=== PATIENT | female | born 1945 | race Caucasian/White ===

== ENCOUNTER → 2016-10-17 | Outpatient (CLI) | payer OTHER, MEDICARE | LOC: BHFA 11:00 | PROVIDERS: ATTEND Internal Medicine Interventional Cardiology | DX: I25.10 Atherosclerotic heart disease of native coronary artery without angina pectoris (principal); E78.5 Hyperlipidemia, unspecified; I10 Essential (primary) hypertension ==

== ENCOUNTER → 2017-02-08 | Outpatient (CLI) | payer OTHER, MEDICARE | LOC: FCPNEURO 21:00 | PROVIDERS: ATTEND Internal Medicine Sleep Medicine | DX: G47.33 Obstructive sleep apnea (adult) (pediatric) (principal); G47.61 Periodic limb movement disorder ==

== ENCOUNTER 2017-04-20 06:50 | Day surgery (SDC) | payer OTHER, MEDICARE ==
[2017-04-20] MEDS ORDERED: FAMOTIDINE 20 MG TAB PO ONE (06:51)
[2017-04-20] MEDS ORDERED: ASPIRIN EC 325 MG TAB PO ONE ×2 (06:51→07:25)
[2017-04-20] MEDS ORDERED: DIAZEPAM 5 MG TAB PO ONE (06:51)
[2017-04-20] MEDS ORDERED: NS 1,000 ML IV ONE (06:51)
[2017-04-20] MEDS ORDERED: diphenhydrAMINE 25 MG CAP PO ONE ×2 (06:51→07:24)
--- NOTE | 2017-04-20 07:20 | CPEKG ---
Heart Rate: 82 RR Interval: 732 P-R Interval: 152 QRSD Interval: 94 QT Interval: 376 QTC Interval: 439 P [place]: 46 QRS [place]: 6 T Wave [place]: 37 EKG Severity - NORMAL ECG - EKG Impression: SINUS RHYTHM Electronically Signed By: Brandt Palacios 20-Apr-2017 14:07:25
[2017-04-20] MEDS ORDERED: DIAZEPAM 5 MG TAB ONE (07:25)
[2017-04-20] MEDS ORDERED: FAMOTIDINE 20 MG TAB ONE (07:25)
[2017-04-20] MEDS ORDERED: CLOPIDOGREL BISULFATE 75 MG TAB PO ONE (07:30)
[2017-04-20 07:37] LABS: % IMMATURE GRANULYOCYTES 0.5 % (0.0-1.1); ABSOLUTE IMMATURE GRANULOCYTES 0.03 10^3/uL (0.00-0.10); ADD DIFF? NO; ADD MORPH? NO; ADD SCAN? NO; ATYPICAL LYMPHOCYTE FLAG 0 (0-99); FRAGMENT RBC FLAG 0 (0-99); HEMATOCRIT 41.3 % (38.0-47.0); LEFT SHIFT FLG 0 (0-99); LIPEMIA HEMOLYSIS FLAG 90 (0-99); MEAN CELL HEMOGLOBIN 29.8 pg (27.9-34.1); MEAN CELL HEMOGLOBIN CONCENTR. 33.9 g/dL (32.4-36.7); MEAN CELL VOLUME 87.9 fL (81.5-99.8); MEAN PLATELET VOLUME 11.2 fL (8.7-11.7); PLATELET CLUMPS FLAG 10 (0-99); PLATELET COUNT 214 10^3/uL (150-400); RED CELL DISTRIBUTION WIDTH 14.6 % (11.5-15.2)
[2017-04-20 07:49] LABS: INR 0.93 (0.83-1.16); PROTIME(PATIENT) 12.4 SEC (12.0-15.0)
[2017-04-20 08:01] LABS: ANION GAP 12 mEq/L (8-16); CALCIUM 9.2 mg/dL (8.5-10.4); CARBON DIOXIDE 24 mEq/l (22-31); CHLORIDE 105 mEq/L (97-110); CHOLESTEROL 160 mg/dL (140-220); CHOLESTEROL/HDL RATIO 2.91 RATIO (1.00-4.44); CREATININE 0.6 mg/dL (0.6-1.0); GLOMERULAR FILTRATION RATE > 60; GLUCOSE 97 mg/dL (70-100); HIGH DENSITY LIPOPROTEIN 55 mg/dL (40-85); LDL/HDL RATIO 1.55 RATIO (1.00-3.22); LOW DENSITY LIPOPROTEIN 85 mg/dL (80-100); MAGNESIUM 1.7 mg/dL (1.6-2.3); NON-HIGH DENSITY LIPOPROTEIN 105 mg/dL (90-129); POTASSIUM 4.4 mEq/L (3.5-5.2); SODIUM 141 mEq/L (134-144); TRIGLYCERIDE 104 mg/dL (35-135); VERY LOW DENSITY LIPOPROTEINS 20 mg/dL (8-25)
[2017-04-20] MEDS ORDERED: fentaNYL 100 MCG/2 ML INJ IVP ONE (08:30)
[2017-04-20] MEDS ORDERED: LISINOPRIL 20 MG TAB PO ONE (08:30)
[2017-04-20] MEDS ORDERED: fentaNYL 100 MCG/2 ML INJ ONE (09:04)
[2017-04-20] MEDS ORDERED: MIDAZOLAM 2 MG/2 ML VIAL ONE (09:04)
[2017-04-20] MEDS ORDERED: LIDOCAINE 1% 300 MG/30 ML SDV ONE (09:04)
[2017-04-20] MEDS ORDERED: VERAPAMIL 5 MG/2 ML VIAL ONE (09:05)
[2017-04-20] MEDS ORDERED: HEPARIN 10,000 UNIT/10 ML MDV ONE (09:05)
[2017-04-20] MEDS ORDERED: IOPAMIDOL (ISOVUE-370) 150 ML BTL IV ONE (09:05)
--- NOTE | 2017-04-20 09:16 | PDHPUP ---
History & Physical Update H&P update statement: This history and physical update is based on an assessment of the patient which was completed after admission or registration (within 24 hours), but prior to the surgery/procedure. H&P update: H&P reviewed & patient examined, no change in patient's condition since H&P completed
--- NOTE | 2017-04-20 09:17 | PDPROPOC ---
Sedation Plan of Care Sedation Plan of Care: vital signs stable, mental status noted, patient educated of risks, benefits, alternatives, patient can tolerate sedation ASA Classification: ASA 2 Planned drugs: fentanyl, midazolam Mallampati Score: Class 2 Mallampati Reference Image: Patient passed 3-3-2 rule?: Yes
[2017-04-20] MEDS ORDERED: NITROGLYCERIN 1,500 MCG/15 ML VIAL MISC ONE (10:02)
[2017-04-20] MEDS ORDERED: ONDANSETRON 4 MG/2 ML VIAL IVP PRN (10:50)
[2017-04-20] MEDS ORDERED: NITROGLYCERIN 0.4 MG BTL SL PRN (10:50)
[2017-04-20] MEDS ORDERED: ATROPINE SULFATE 1 MG/10 ML SYR IVP PRN (10:50)
--- NOTE | 2017-04-20 10:57 | PDDXCAT ---
Diagnostic Cath Note - . Date: 04/20/17 Procurement Technician: Joshua Indication: other (Chest pain and CAD with history of prior PCIs.) - Procedure Access: right wrist Procedure: left heart catheterization, coronary angiography, left ventriculogram - Materials Left Heart Cath size: 5F Left Heart Cath materials: other (Sightseer, JR-4, JL-3.5, Mario's right, Multipurpose A-1, and Pigtail) - Findings-Left Heart Catheterization LM: Normal. LAD: Diffuse mild to moderate disease proximal to mid-LAD. Prior stent widely patent. LCX: Mild irregularities proximal and mid-circumflex. RCA: Diffuse mild to moderate irregularities less than 50%. EDP: 22 mmHg LVEF: 65% Wall motion: Mild mid-anterior hypokinesis. Estimated blood loss: <50ml Closure method: TR Band Assessment: 1) Preserved left ventricular systolic function. 2) CAD as described above. Plan: Add long acting nitrate for possible microvascular angina.
[2017-04-21] MEDS ORDERED: ISOSORBIDE MONONITRATE 30 MG TAB.SR PO SCH (09:00)
== END 2017-04-20 15:03 | disposition home or self-care (01) ==
LOC: FCATH 06:50
PROVIDERS: ATTEND Internal Medicine Interventional Cardiology
DX: I25.119 Atherosclerotic heart disease of native coronary artery with unspecified angina pectoris (principal); E78.5 Hyperlipidemia, unspecified; I10 Essential (primary) hypertension; E11.9 Type 2 diabetes mellitus without complications; I34.0 Nonrheumatic mitral (valve) insufficiency; Z95.5 Presence of coronary angioplasty implant and graft; M51.86 Other intervertebral disc disorders, lumbar region; E03.9 Hypothyroidism, unspecified; K21.9 Gastro-esophageal reflux disease without esophagitis
CPT/HCPCS: 93005; 93458; C1769; J1644; J2250; J3010; Q9967

== ENCOUNTER 2017-08-07 13:35 | Day surgery (SDC) | payer OTHER, MEDICARE ==
[2017-08-07] MEDS ORDERED: LR 1,000 ML IV ONE (13:42)
[2017-08-07 14:05] VITALS: PULSE 90
--- NOTE | 2017-08-07 14:11 | PDANEPAE ---
ANE History of Present Illness Patient presents for EGD ANE Past Medical History - Cardiovascular History Hx Coronary Artery / Peripheral Vascular Disease: Yes - Pulmonary History Hx Oxygen in Use at Home: Yes Hx Sleep Apnea: Yes - Endocrine History Hx Diabetes: Yes ANE Review of Systems Review of Systems: ANE Patient History - Allergies Allergies/Adverse Reactions: povidone-iodine [From Betadine] Allergy (Severe, Verified 07/26/15 18:48) Hives soap [From Betadine] Allergy (Severe, Verified 07/26/15 18:48) Hives Sulfa (Sulfonamide Antibiotics) Allergy (Severe, Verified 07/26/15 18:48) Hives acetaminophen [From Percocet] Allergy (Intermediate, Verified 07/26/15 18:48) Vomiting oxycodone HCl [From Percocet] Allergy (Intermediate, Verified 07/26/15 18:48) Vomiting - Home Medications Home medications: home medication list seen and reviewed Home Medications: Clopidogrel Bisulfate [Plavix (*)] 75 mg PO DAILY@07/20/15 [Last Taken ] Levothyroxine [Synthroid 100 mcg (*)] 100 mcg PO DAILY@07/20/15 [Last Taken 08/07/17] Pantoprazole Sodium [Protonix 40mg (*)] 40 mg PO DAILY@07/20/15 [Last Taken 08/07/17] Pramipexole Di-HCl [Mirapex 0.25 mg (*)] 0.5 mg PO DAILY 07/20/15 [Last Taken ] metFORMIN HCL [Glucophage 1000 mg] 1,000 mg PO BIDMEAL 07/20/15 [Last Taken 11/17] Lisinopril [Zestril 20 mg (*)] 20 mg PO DAILY@07/26/15 [Last Taken 08/07/17] Herbals/Supplements -Info Only 1 ea PO DAILY 04/20/17 [Last Taken 08/07/17] Lovastatin 10 mg PO DAILY@04/20/17 [Last Taken 08/07/17] Pramipexole Di-HCl [Mirapex 1 mg (*)] 1 mg PO DAILY18 04/20/17 [Last Taken 08/07] - NPO status NPO Status: no food or drink >8 hours NPO Since - Liquids (Date): 08/07/17 NPO Since - Liquids (Time): 01:14 NPO Since - Solids (Date): 08/06/17 NPO Since - Solids (Time): 22:00 - Anes Hx Anes Hx: no prior problems - Smoking Hx Smoking Status: Never smoked ANE Labs/Vital Signs - Vital Signs Blood Pressure: 185/83 Heart Rate: 90 Respiratory Rate: 16 O2 Sat (%): 94 ANE Physical Exam - Airway Neck exam: FROM Mallampati Score: Class 2 Mouth exam: normal dental/mouth exam - Pulmonary Pulmonary: no respiratory distress - Cardiovascular Cardiovascular: regular rate and rhythym - ASA Status ASA Status: III ANE Anesthesia Plan Anesthesia Plan: GA with mask
[2017-08-07] MEDS ORDERED: PROPOFOL/EMULSION 500 MG/50 ML BOTTLE IV ONE ×2 (14:14→14:36)
--- NOTE | 2017-08-07 14:16 | PDGENHP ---
History & Physical Chief Complaint: panc mass History of Present Illness: 71 year old female with complaints of nasuea, abdominal pain had a CT scan with possible mass in pancreatic neck. Pertinent Past, Social, Family History: PMHx: lesley, CVA, CAD Relevant Physical Exam: HEENT: anicteric. CV: RRR +s1s2. Lungs: CTAB. Abd: soft, nt, + bs Cardiorespiratory Assessment: ASA 3
[2017-08-07] MEDS ORDERED: LIDOCAINE 2% 5 ML SDV ONE (14:17)
[2017-08-07] MEDS ORDERED: NS 500 ML IV SCH (14:30)
[2017-08-07] MEDS ORDERED: HYDROCODONE/APAP 5/325 TAB PO PRN (15:40)
[2017-08-07] MEDS ORDERED: LR 500 ML IV PRN (15:40)
[2017-08-07] MEDS ORDERED: NALOXONE HCL 0.4 MG/ML INJ IVP PRN (15:40)
[2017-08-07] MEDS ORDERED: fentaNYL 100 MCG/2 ML INJ IVP PRN (15:40)
[2017-08-07] MEDS ORDERED: ONDANSETRON 4 MG/2 ML VIAL IVP PRN (15:40)
--- NOTE | 2017-08-07 15:40 | POSTANESTH ---
Post Anesthetic Evaluation Cardiovascular Status: Similar to Pre-Op Cond Respiratory Status: Similar to Pre-op Cond. Level of Consciousness/Mental Status: Can Participate in Eval Pain Control: Adequate, Prn Tx Ordered Nausea/Vomiting Control: Adequate, Prn Tx Ordered Complications Possibly Related to Anesthesia: None Noted
--- NOTE | 2017-08-07 15:56 | GIREPORT ---
[facility] Surgical Services - Endoscopy Department Patient Name: Sarah Beth Oneill Procedure Date: 08/07/2017 1:38 PM Patient Type: Inpatient Attending MD/ ER Physician: Omer Dougherty MD Procedure: Upper EUS Indications: Suspected mass in pancreas on CT scan, Epigastric abdominal pain Patient Profile: 71 year old female who initially had abdominal pain had a CT scan which revealed a possible mass in the pancreas. She presents for further evaluation. Providers: Omer Dougherty MD Medicines: Monitored Anesthesia Care Complications: No immediate complications. Estimated blood loss: Minimal. Description of Procedure: After obtaining informed consent, the endoscope was passed under direct vision. Throughout the procedure, the patient's blood pressure, pulse, and oxygen saturations were monitored continuously. The Endosonoscope was introduced through the mouth, and advanced to the second part of duoden um. The Endoscope was introduced through the mouth, and advanced to the sec ond part of duodenum. The upper EUS was accomplished without difficulty. Th e patient tolerated the procedure well. Findings: Endoscopic Finding : The examined esophagus was normal. A medium-sized hiatal hernia was present. A single 6 mm submucosal papule (nodule) was found in the gastric antru m. Biopsies were taken with a cold forceps for histology. Patchy mildly erythematous mucosa was found in the gastric body and in the gastric antrum. Biopsies were taken with a cold forceps for histology. The examined duodenum was normal. Endosonographic Finding : An irregular mass was identified in the pancreatic neck. The mass was hypoechoic. The mass measured 15 mm by 12 mm in maximal cross-sectional diameter. The endosonographic borders were poorly-defined. The remainde r of the pancreas was examined. The endosonographic appearance of parenchyma and the upstream pancreatic duct indicated duct dilation. Fine needle aspir ation for cytology was performed. Color Doppler imaging was utilized prior to needle puncture to confirm a lack of significant vascular structures wi thin the needle path. Three passes were made with the 25 gauge needle using a transduodenal approach. A stylet was used. A java xml developer was present and performed a preliminary cytologic examination. Another transduodenal pa ss was made witha 22 gauge FNB needle. The mass was close to the portal ve in. No obvious invasion into any vessels. There was no sign of significant endosonographic abnormality in the com mon bile duct. There was no sign of significant endosonographic abnormality in the visualized portion of the liver. No lymphadenopathy seen. Estimated Blood Loss: Estimated blood loss was minimal. Post Op Diagnosis: - Normal esophagus. - Medium-sized hiatal hernia. - A single submucosal papule (nodule) found in the stomach. Biopsied. - Erythematous mucosa in the gastric body and antrum. Biopsied. - Normal examined duodenum. - A mass was identified in the pancreatic neck. Fine needle aspiration performed. - There was no sign of significant pathology in the common bile duct. - There was no evidence of significant pathology in the visualized port ion of the liver. Recommendation: - Discharge patient to home (with escort). - Continue present medications. - Clear liquid diet. - Await cytology results and await path results. - Follow up with oncology/surgery - Thank you for allowing me to participate in the care of your patient. Attending Participation: I personally performed the entire procedure. Omer Dougherty MD Omer Dougherty MD 08/07/2017 3:55:38 PM This report has been signed electronicallyOmer Dougherty MD Number of Addenda: 0 Note Initiated On: 08/07/2017 1:38 PM [email or web address]}
[2017-08-07 16:26] VITALS: RESP 21
[2017-08-07 17:39] VITALS: TEMP 97.3
[2017-08-07 18:04] VITALS: BP 183/103; O2SAT 95
== END 2017-08-07 17:20 | disposition home or self-care (01) ==
LOC: FSGY 13:35
PROVIDERS: ATTEND Internal Medicine Gastroenterology
DX: R10.13 Epigastric pain (principal); C25.7 Malignant neoplasm of other parts of pancreas
CPT/HCPCS: J2704

== ENCOUNTER 2017-12-13 18:50 | Inpatient (IN) | payer OTHER, MEDICARE ==
--- NOTE | 2017-12-13 19:27 | EDPHY ---
H & P Time Seen by Provider: 12/13/17 19:05 HPI/ROS: CHIEF COMPLAINT: Nausea vomiting and weakness HISTORY OF PRESENT ILLNESS: Patient had a Whipple procedure in August of this year for pancreatic cancer down at [facility] in [place]. She was scheduled for chemotherapy but it made her feel so bad that that was stopped. She has had nausea and vomiting for the past 5 months worse over the past week and is brought here by her daughter's best friend when she went to check on her and the patient could barely stand at home. Patient says symptoms are severe. Not associated with abdominal pain but they are worse when she tries to eat or drink. A little bit helped by Reglan and Zofran. Associated with 35 lb weight loss in 5 months. She has a little shortness of breath specially with exertion. REVIEW OF SYSTEMS: Eye: no change in vision ENT: no sore throat Cardiac: no chest pain or syncope Pulmonary: No coughing Abdomen: No diarrhea or melena or hematemesis. Musculoskeletal: no back pain Skin: no rash Neuro: no headache Constitutional: no fever : Darker and funny smelling urine A comprehensive 10 point review of systems is otherwise negative aside from elements mentioned in the history of present illness. PAST MEDICAL HISTORY: Includes Whipple as above, hypertension, cardiac stenting , hypothyroid, hysterectomy. Cholecystectomy, diabetes. Social history: Here with her daughter's best friend General Appearance: Alert and conversant, cooperative. Eyes: No scleral icterus. ENT, Mouth: Slightly dry mucous membranes. Respiratory: Normal respiratory effort, breath sounds equal, lungs are clear to auscultation. Cardiovascular: Regular rate and rhythm. Gastrointestinal: Abdomen is soft and non tender. Neurological: Alert, face symmetric, normal motor and sensory in extremities. Skin: Warm and dry, no rashes. Musculoskeletal: No peripheral edema. Psychiatric: Not agitated. Emergency Department course/MDM: Plan for EKG and labs to include electrolytes, TSH, IV fluids, admission to hospitalist service due to the severity of symptoms and debilitation. 1956: I-STAT sodium 141, normal saline 1 L IV given, Zofran 4 mg IV. 2040: discussed results with family and patient, admission for UTI with debility and dehydration and nausea, inability to tolerate oral fluids. Urine culture sent and 1 g IV ceftriaxone. Smoking Status: Never smoked Constitutional: Initial Vital Signs Temperature (C) 36.5 C 12/13/17 18:56 Heart Rate 64 12/13/17 18:56 Respiratory Rate 18 12/13/17 18:56 Blood Pressure 122/107 H 12/13/17 18:56 O2 Sat (%) 96 12/13/17 18:56 O2 Delivery Mode Room Air Allergies/Adverse Reactions: povidone-iodine [From Betadine] Allergy (Severe, Verified 07/26/15 18:48) Hives soap [From Betadine] Allergy (Severe, Verified 07/26/15 18:48) Hives Sulfa (Sulfonamide Antibiotics) Allergy (Severe, Verified 07/26/15 18:48) Hives acetaminophen [From Percocet] Allergy (Intermediate, Verified 07/26/15 18:48) Vomiting oxycodone HCl [From Percocet] Allergy (Intermediate, Verified 07/26/15 18:48) Vomiting Home Medications: Medication Instructions Recorded Clopidogrel Bisulfate [Plavix (*)] 75 mg PO DAILY@12 07/20/15 Levothyroxine [Synthroid 100 mcg 100 mcg PO DAILY@07/20/15 (*)] Pantoprazole Sodium [Protonix 40mg 40 mg PO DAILY@12 07/20/15 (*)] Pramipexole Di-HCl [Mirapex 0.25 0.5 mg PO DAILY 07/20/15 mg (*)] Lisinopril [Zestril 20 mg (*)] 20 mg PO DAILY@12 07/26/15 Lovastatin 10 mg PO DAILY@04/20/17 Pramipexole Di-HCl [Mirapex 1 mg 1 mg PO DAILY18 04/20/17 (*)] Insulin NPH Human [HumuLIN N] 5 units SQ HS 12/13/17 Insulin NPH Human [HumuLIN N] 6 units SQ DAILY 12/13/17 Metoclopramide [Reglan 5 mg (*)] 5 mg PO ACHS 12/13/17 Metoprolol Tartrate [Lopressor 25 12.5 mg PO DAILY 12/13/17 mg (*)] Medical Decision Making - Diagnostics EKG Interpretation: 12-lead EKG interpreted by me; official reading is in trace master. My interpretation is sinus rhythm rate 70 with no ischemic changes. Differential Diagnosis: Differential for weakness and nausea considered including but not limited to ACS , UTI, electrolyte abnormality, anemia. Consult/Admit Bed Type: [place] 2048, [place] 2047 - Data Points Laboratory Results: Laboratory Results 12/13/17 19:32 12/13/17 19:32 12/13/17 12/13/17 12/13/17 19:53 19:49 19:44 WBC RBC Hgb POC Hgb 14.3 gm/dL gm/dL (12.6-16.3) Hct POC Hct 42 % % (38-47) MCV MCH MCHC RDW Plt Count MPV Neut % (Auto) Lymph % (Auto) [place] % (Auto) Eos % (Auto) Baso % (Auto) Nucleat RBC Rel Count Absolute Neuts (auto) Absolute Lymphs (auto) Absolute Monos (auto) Absolute Eos (auto) Absolute Basos (auto) Absolute Nucleated RBC Immature Gran % Immature Gran # POC Sodium 141 mEq/L mEq/L (135-145) Sodium POC Potassium 3.4 mEq/L mEq/L (3.3-5.0) Potassium POC Chloride 103 mEq/L mEq/L (97-110) Chloride Carbon Dioxide Anion Gap POC BUN 7 mg/dL mg/dL (7-23) BUN Creatinine POC Creatinine 0.8 mg/dL mg/dL (0.6-1.0) Estimated GFR Glucose POC Glucose 84 mg/dL mg/dL (70-100) Calcium Total Bilirubin Conjugated Bilirubin Unconjugated Bilirubin AST ALT Alkaline Phosphatase POC Troponin I 0.00 ng/mL ng/mL (0.00-0.08) Total Protein Albumin TSH Urine Color YELLOW Urine Appearance CLEAR Urine pH 6.0 (5.0-7.5) Ur Specific [place] 1.015 (1.002-1.030) Urine Protein NEGATIVE (NEGATIVE) Urine Ketones NEGATIVE (NEGATIVE) Urine Blood NEGATIVE (NEGATIVE) Urine Nitrate NEGATIVE (NEGATIVE) Urine Bilirubin NEGATIVE (NEGATIVE) Urine Urobilinogen NEGATIVE EU EU (0.2-1.0) Ur Leukocyte Esterase 3+ H (NEGATIVE) Urine RBC 1-3 /hpf /hpf (0-3) Urine WBC 15-25 /hpf H /hpf (0-3) Ur Epithelial Cells TRACE /lpf /lpf (NONE-1+) Urine Mucus TRACE /lpf /lpf (NONE-1+) Urine Glucose NEGATIVE (NEGATIVE) 12/13/17 12/13/17 19:32 19:32 WBC 7.98 10^3/uL 10^3/uL (3.80-9.50) RBC 4.45 10^6/uL 10^6/uL (4.18-5.33) Hgb 13.2 g/dL g/dL (12.6-16.3) POC Hgb Hct 39.2 % % (38.0-47.0) POC Hct MCV 88.1 fL fL (81.5-99.8) MCH 29.7 pg pg (27.9-34.1) MCHC 33.7 g/dL g/dL (32.4-36.7) RDW 18.9 % H % (11.5-15.2) Plt Count 305 10^3/uL 10^3/uL (150-400) MPV 12.1 fL H fL (8.7-11.7) Neut % (Auto) 72.4 % % (39.3-74.2) Lymph % (Auto) 17.7 % % (15.0-45.0) [place] % (Auto) 7.8 % % (4.5-13.0) Eos % (Auto) 1.3 % % (0.6-7.6) Baso % (Auto) 0.5 % % (0.3-1.7) Nucleat RBC Rel Count 0.0 % % (0.0-0.2) Absolute Neuts (auto) 5.79 10^3/uL 10^3/uL (1.70-6.50) Absolute Lymphs (auto) 1.41 10^3/uL 10^3/uL (1.00-3.00) Absolute Monos (auto) 0.62 10^3/uL 10^3/uL (0.30-0.80) Absolute Eos (auto) 0.10 10^3/uL 10^3/uL (0.03-0.40) Absolute Basos (auto) 0.04 10^3/uL 10^3/uL (0.02-0.10) Absolute Nucleated RBC 0.00 10^3/uL 10^3/uL (0-0.01) Immature Gran % 0.3 % % (0.0-1.1) Immature Gran # 0.02 10^3/uL 10^3/uL (0.00-0.10) POC Sodium Sodium 141 mEq/L mEq/L (135-145) POC Potassium Potassium 3.9 mEq/L mEq/L (3.3-5.0) POC Chloride Chloride 106 mEq/L mEq/L (97-110) Carbon Dioxide 23 mEq/l mEq/l (22-31) Anion Gap 12 mEq/L mEq/L (8-16) POC BUN BUN 9 mg/dL mg/dL (7-23) Creatinine 0.7 mg/dL mg/dL (0.6-1.0) POC Creatinine Estimated GFR > 60 Glucose 74 mg/dL mg/dL (70-100) POC Glucose Calcium 8.8 mg/dL mg/dL (8.5-10.4) Total Bilirubin 0.8 mg/dL mg/dL (0.1-1.4) Conjugated Bilirubin 0.5 mg/dL mg/dL (0.0-0.5) Unconjugated Bilirubin 0.3 mg/dL mg/dL (0.0-1.1) AST 62 IU/L H IU/L (14-46) ALT 55 IU/L H IU/L (9-52) Alkaline Phosphatase 118 IU/L IU/L (38-126) POC Troponin I Total Protein 6.4 g/dL g/dL (6.3-8.2) Albumin 3.3 g/dL L g/dL (3.5-5.0) TSH 6.200 uIU/mL H uIU/mL (0.465-4.680) Urine Color Urine Appearance Urine pH Ur Specific [place] Urine Protein Urine Ketones Urine Blood Urine Nitrate Urine Bilirubin Urine Urobilinogen Ur Leukocyte Esterase Urine RBC Urine WBC Ur Epithelial Cells Urine Mucus Urine Glucose Medications Given: Discontinued Medications Sodium Chloride (Ns) 1,000 mls @ 0 mls/hr IV EDNOW ONE; Wide Open PRN Reason: Protocol Stop: 12/13/17 19:57 Last Admin: 12/13/17 20:17 Dose: 1,000 mls Ceftriaxone Sodium/Dextrose (Rocephin 1 Gm (Premix)) 50 mls @ 100 mls/hr IV EDNOW ONE PRN Reason: Protocol Stop: 12/13/17 21:17 Last Admin: 12/13/17 21:06 Dose: 50 mls Ondansetron HCl (Zofran) 4 mg IVP EDNOW ONE Stop: 12/13/17 19:57 Last Admin: 12/13/17 20:17 Dose: 4 mg Point of Care Test Results: Chemistry 12/13/17 12/13/17 19:53 19:49 POC Sodium 141 mEq/L mEq/L (135-145) POC Potassium 3.4 mEq/L mEq/L (3.3-5.0) POC Chloride 103 mEq/L mEq/L (97-110) POC BUN 7 mg/dL mg/dL (7-23) POC Creatinine 0.8 mg/dL mg/dL (0.6-1.0) POC Glucose 84 mg/dL mg/dL (70-100) POC Troponin I 0.00 ng/mL ng/mL (0.00-0.08) ISTAT H&H 12/13/17 19:53 POC Hgb 14.3 gm/dL gm/dL (12.6-16.3) POC Hct 42 % % (38-47) Departure - Departure Disposition: [facility] Inpatient Acute Clinical Impression: UTI (urinary tract infection) Qualifiers: Urinary tract infection type: site unspecified Hematuria presence: without hematuria Qualified Code(s): N39.0 - Urinary tract infection, site not specified Nausea & vomiting Qualifiers: Vomiting type: unspecified Vomiting Intractability: unspecified Qualified Code( s): R11.2 - Nausea with vomiting, unspecified Condition: Good
[2017-12-13 19:54] LABS: PLATELET COUNT 305 10^3/uL (150-400)
[2017-12-13] MEDS ORDERED: NS 1,000 ML IV ONE (19:56)
[2017-12-13] MEDS ORDERED: ONDANSETRON 4 MG/2 ML VIAL IVP ONE (19:56)
--- NOTE | 2017-12-13 20:09 | CPEKG ---
Heart Rate: 70 RR Interval: 857 P-R Interval: 128 QRSD Interval: 98 QT Interval: 420 QTC Interval: 454 P [place]: 43 QRS [place]: 8 T Wave [place]: 37 EKG Severity - NORMAL ECG - EKG Impression: SINUS RHYTHM Electronically Signed By: Edward Lester 13-Dec-2017 20:26:07
[2017-12-13] MEDS ORDERED: ACETAMINOPHEN 325 MG TAB PO PRN (22:25)
[2017-12-13] MEDS ORDERED: D5W 1/2 NS 1,000 ML IV SCH (22:30)
[2017-12-13] MEDS ORDERED: D50W 25 GM/50 ML SYR IVP PRN (23:18)
[2017-12-13] MEDS: ONDANSETRON 4 MG/2 ML VIAL IVP PRN (23:37)
[2017-12-13] MEDS ORDERED: ALBUTEROL 3 ML DEYVIAL IH PRN (23:43)
--- NOTE | 2017-12-14 01:05 | GHP ---
[f rep st] HISTORY AND PHYSICAL DATE OF ADMISSION: 12/13/2017 PRIMARY ONCOLOGIST: Yon Elias MD. SOURCE: Patient provides history, appears reliable. Her EMR was reviewed and case discussed with [facility] hospitalist. CHIEF COMPLAINT: Generalized weakness and weight loss. HISTORY OF PRESENT ILLNESS: This is a very pleasant 72-year-old female with past medical history sig nificant for pancreatic cancer, status post Whipple with partial stomach and small bowel resection in August 2017, who presents to the emergency department today with complaints of generalized weaknes s and weight loss over the last 5 months. The patient resides with her daughter and her family. A f ribridget of the patient's daughter came to the home to check on the patient and found that she was so we ak she had difficulty standing up and so presented to the emergency department for further evaluation . The patient reports that she has had decreased appetite since her surgery, as well as approximatel y 35 pound weight loss over the last 5 months. The patient denies any fevers or chills. She reports that she had a little bit of vertigo in the last few days, which is resolved since yesterday. She d enies any presyncope. No rhinorrhea, sore throat, or cough. She denies any dysuria or hematuria. T he patient currently denying any abdominal pain. She has had regular formed bowel movements, but she reports that they are quite foul smelling, but this has not changed since her surgery. The patient has had some GI upset with any kind of oral intake, either liquid or solids. She does take Reglan an d Zofran on a regular basis, which does alleviate some of these symptoms. The patient reports that s he has been experiencing some slight dyspnea on exertion over the last several weeks. She has also n oted some increased edema. She denies any orthopnea or PND. REVIEW OF SYSTEMS: GENERAL: No fevers or chills. SKIN: No new rashes or sores. ENT: The patient denies any congestion or sore throat. EYES: No acute changes in vision or ocular pain. CV: The p atient denies any chest pain or palpitations. No orthopnea or PND. Positive for dyspnea on exertion . RESPIRATORY: Negative for cough, positive dyspnea on exertion with history of asthma, but no whee zing. GI: Patient with intermittent nausea and vomiting alleviated with her home medications p.r.n. Reglan and Zofran. No abdominal pain currently. Normal bowel movements. No melena or hematochezia reported. : No dysuria or hematuria. MUSCULOSKELETAL: Patient denies any acute joint pains or myalgias. NEURO: No headache, numbness, tingling, some vertigo as noted above in HPI. PSYCH: Nega tive for anxiety depression. The remainder of review of systems negative except as noted above. ALLERGIES: To Betadine, sulfa, soap and oxycodone, patient develops GI upset, but tolerates Tylenol which is currently listed on her allergy list as well. PAST MEDICAL HISTORY: Significant for: 1. Pancreatic cancer, status post resection with a Whipple involving some stomach and bowel. This w as in August 2017 at [facility]. 2. Benign essential hypertension. 3. CAD with history of stent x1 in 2012 when patient was living in [place]. 4. Hypothyroidism. 5. Diabetes type 2. 6. Asthma. 7. Restless legs syndrome. PAST SURGICAL HISTORY: Significant for: 1. The Whipple as noted above. 2. Hysterectomy. 3. Bladder sling. 4. Cholecystectomy. 5. Cardiac cath with stent x1. 6. Bilateral cataract extraction with lens placement. 7. Breast augmentation and subsequent removal of implants secondary to leaking of the implant. 8. Partial thyroidectomy. 9. Bilateral total hip arthroplasty and right total knee arthroplasty. FAMILY HISTORY: Significant for mother with pancreatic cancer, diabetes, hypertension. Father with history of CAD and [place]. SOCIAL HISTORY: Patient lives with her daughter and her family. She utilizes occasional eatable can nabinoids. She denies any alcohol intake and no other illicit drugs or tobacco use. COR STATUS: Discussed with the patient is full, she does not want prolonged life support. PHYSICAL EXAMINATION: VITAL SIGNS: Upon arrival to the emergency department, blood pressure 122/107 , heart rate 64, respiratory rate 18, O2 sat 96% on room air, with temperature 36.5. Vitals currentl y, blood pressure 158/76, heart rate 70, respiratory rate 16, O2 sat 92% on room air. GENERAL: No a cute distress, pleasant, thin adult female, who is sitting up in [facility], appears quite fatigued, yawn s intermittently. Son is at bedside. HEAD: Normocephalic, atraumatic. EYES: Extraocular muscles are grossly intact. Pupils are equal, round, reactive to light bilaterally and symmetric. Lens refl ex is appreciated bilaterally. ENT: Mucous membranes appear slightly tacky. No nasal discharge. N o oropharyngeal erythema or exudates. NECK: Supple. Trachea midline. The patient does have a thyr oid well-healed surgical scar on her lower neck and upper chest. RESPIRATORY: Lungs are clear to au scultation bilaterally, slightly diminished at the bases. No wheezes, rhonchi, or rales otherwise. Unlabored breathing. CHEST: No chest wall tenderness to palpation. Regular rate and rhythm. No mu rmurs, rubs, or gallops appreciated. ABDOMEN: Minimally distended, but soft. No rebound, guarding, or masses appreciated. : No suprapubic tenderness to palpation. No CVA tenderness. No Metz ca theter in place. MUSCULOSKELETAL: Generalized weakness 4/5 upper and lower extremities bilaterally and symmetric. Moves all extremities. NEURO: Cranial nerves 2-12 are intact, symmetric bilaterally . Patient is awake, alert, and oriented x4. PSYCH: Affect slightly flat. The patient does appear fatigued. LABORATORY STUDIES: WBC 7.98, H and H are 13.2 and 39.2, MCV of 88.1, platelet count is 305, neutrop hil percent 72.4. No bandemia. Sodium 141, potassium 3.9, chloride is 106, CO2 is 23, anion gap 12, BUN 9, creatinine 0.7. GFR greater than 60, glucose 74, calcium 88, total bilirubin 0.8, ALT is 55, AST 62, alk phos is 118. Troponin is 0. Total protein 6.4, albumin 3.3. TSH is 6.2. Repeated bed side glucose was 70. EKG was reviewed by myself showing normal sinus rhythm in the 70s without any acute ST changes. QTc of 454. ASSESSMENT AND PLAN: This is a very pleasant 72-year-old female with history of coronary artery dise ase, hypertension, hyperlipidemia, diabetes mellitus 2, asthma, and pancreatic cancer, status post Wh ipple resection and 2 rounds of chemotherapy, who presents to the emergency department with complaint s of generalized weakness. 1. Generalized weakness, likely multifactorial including failure to thrive with recent surgery and w eight loss. Patient also has some indication of pyuria, but she is relatively asymptomatic without l eukocytosis or fever. She has been given a dose of Rocephin in the emergency department. We will ho ld off on further antibiotic therapy pending urine culture preliminary findings. Additionally, tati nielson reports that she has had declined oral intake and supplementation nutritionally. Will check a pre albumin, as well as follow up on her TFTs given that she has an elevated TSH at this point. The juan ent's blood sugars also are on the lower side. She is relatively asymptomatic except for some weakne ss. She has been given some juice and has been able to tolerate. We will hold off on her NPH at thi s point, put on a low sliding scale if needed. The patient will be given some gentle hydration with D5 supplementation and glucoses will be monitored for now. 2. Pyuria. Rocephin given as noted above. Awaiting culture. 3. Hypoglycemia. Try to advance diet as tolerated. Glucerna has been ordered for supplementation t hree times daily with meals. Low-dose sliding scale and hold off on patient's regularly scheduled ROUND KILN DRAWER H, which is also relatively low dose. 4. Failure to thrive in an adult, again checking prealbumin. PT, OT will be consulted. Dietary in addition. 5. History of pancreatic cancer, status post resection and several rounds of chemotherapy, which karla cervantes is no longer able to tolerate. Dr. Fan with Oncology has been consulted and they will follow patient in the morning. The patient's abdominal exam is benign at this point. Will hold off on any further imaging studies. Await Oncology's recommendations. 6. Weight loss with declining appetite. See plan above. Monitor daily weights at this point. 7. Lower extremity edema with some dyspnea. No PND, no orthopnea reported. Vitals and blood pressu res at this time are acceptable. We will monitor patient's status overnight. Consider further cardi ac evaluation. Patient also with a history of asthma. Will make albuterol available with mobilizati on. She has no hypoxia recorded. CHRONIC MEDICAL ISSUES: 1. Coronary artery disease. Continue patient's Plavix, statin, beta-padmini and PABLO inhibitor. 2. Benign essential hypertension. Patient with some intermittent elevated blood pressures. She mayen s appear a little bit anxious and quite fatigued. I will plan to resume her lisinopril with the norm al renal function. Hydralazine will be added p.r.n. She is not currently complaining of any pain. 3. Hyperlipidemia. Continue statin. 4. Diabetes type 2. As noted above, the patient with some low blood sugars at this point. Holding NPH and place on low-dose sliding scale p.r.n. 5. Hypothyroidism. Checking additional TFTs, T4 and T3, given patient's complaint of weakness. Con tinue her home dose supplementation 100 mcg levothyroxine at this time pending those studies. 6. Asthma. Albuterol as noted above. 7. Fluid electrolyte nutrition: D5 half-normal saline has been ordered for overnight supplementatio n and hydration. She did receive 1 L normal saline in the emergency department, but blood sugars are slightly low and she has had declined oral intake. We will try to encourage advanced diet as tolera dmitriy. 8. Prophylaxis: SCDs and Lovenox if patient should stay additional day. 9. Cor status is full. DISPOSITION: Patient has been admitted to observation status on the medical floor at this time. She appears to be an ICU overflow. We will await a.m. labs and Oncology's recommendations. /[id number]/MODL
[2017-12-14] MEDS: METOCLOPRAMIDE 10 MG/2 ML VIAL IVP PRN ×2 (03:04→18:49)
[2017-12-14] MEDS: LORazepam 2 MG/ML INJ IVP PRN (03:40)
[2017-12-14 03:43] LABS: PLATELET COUNT 256 10^3/uL (150-400)
[2017-12-14] MEDS ORDERED: LORazepam 0.5 MG TAB PO PRN (04:03)
[2017-12-14] MEDS ORDERED: LORazepam 2 MG/ML INJ ONE (04:09)
[2017-12-14] MEDS: INSULIN LISPRO 100 UNIT/ML SC SCH ×4 (08:08→20:58)
[2017-12-14] MEDS ORDERED: METOPROLOL TARTRATE 25 MG TAB PO SCH (09:00)
[2017-12-14] MEDS: hydrALAZINE 20 MG/ML VIAL IVP PRN ×2 (09:03→17:10)
[2017-12-14] MEDS: ENOXAPARIN 40 MG/0.4 ML SYR SC SCH (09:14)
[2017-12-14] MEDS: ONDANSETRON 4 MG/2 ML VIAL IVP PRN ×2 (11:17→15:24)
[2017-12-14] MEDS ORDERED: PANTOPRAZOLE SODIUM 40 MG TAB PO SCH (12:00)
[2017-12-14] MEDS: LEVOTHYROXINE 100 MCG TAB PO SCH (12:18)
[2017-12-14] MEDS: LISINOPRIL 20 MG TAB PO SCH (12:19)
[2017-12-14] MEDS: CLOPIDOGREL BISULFATE 75 MG TAB PO SCH (12:19)
[2017-12-14] MEDS ORDERED: SCOPOLAMINE HYDROBROMIDE 1 MG/3 DAYS PATCH TD SCH (13:30)
--- NOTE | 2017-12-14 13:41 | HOSPPROG ---
Hospitalist Progress Note Assessment/Plan: Nausea and vomiting - Pt notes h/o PUD, asking for endoscopy. Consider obstructive process given h/o pancreatic cancer. Also consider gastroparesis. She is very responsive to reglan. -CT abd/pelvis to r/o obstructive process -cont PPI, add sucralfate -symptom control with zofran, reglan, prn ativan, add scopolamine patch -consider gastric emptying study if CT unrevealing +/- GI consult, though not sure endoscopy would lead to change in management Weakness / FTT - partly due to above, poor oral intake. -PT/OT evals -dietary consult Pancreatic cancer s/p whipple and SBO in 08/2017 - followed by Dr. Elias. Didn't tolerate chemo for very long, now off chemo. -oncology to consult Hypertension - controlled, continue lisinopril CAD s/p stent 2017 - Stable, cont plavix, BB, williams, statin. DM type 2 - hypoglycemic on arrival, BG's better now in 100's -cont to hold NPH given poor oral intake, favor SSI for now Asthma - no acute exac Hypothyroidism - cont home meds Full code DVT PPLX - high risk, Lovenox Dispo - change to inpt as will likely require >48 hrs hospitalization for ongoing management of N/V and associated weakness. Cont PT/OT. May require SNF. CM consult requested. Subjective: Pt reports ongoing N/V today. States reglan is most helpful. No fevers /chills. Shakes are better (may have been from hypoglycemia on arrival). C/O epigastric pain, worsening over several weeks. No CP, SOB or wheezing. Objective: Vital Signs Temp Pulse Resp BP Pulse Ox 36.6 C 77 16 158/79 H 92 12/14/17 08:00 12/14/17 08:00 12/14/17 08:00 12/14/17 12:19 12/14/17 08:00 Laboratory Results 12/14/17 03:30 12/14/17 03:30 12/13/17 12/14/17 12/15/17 05:59 05:59 05:59 Intake Total 1600 Output Total 5 Balance 1595 - Physical Exam Constitutional: no apparent distress Eyes: PERRL Ears, Nose, Mouth, Throat: moist mucous membranes Cardiovascular: regular rate and rhythym Respiratory: no respiratory distress, clear to auscultation Gastrointestinal: other (soft, nd, +epigastric TTP, no r/r/g, +BS) Skin: warm Musculoskeletal: full muscle strength Neurologic: AAOx3 Psychiatric: interacting appropriately ICD10 Worksheet Patient Problems: Problems Problem Status Onset Nausea & vomiting Acute UTI (urinary tract infection) Acute
[2017-12-14] MEDS: PRAVASTATIN SODIUM 10 MG TAB PO SCH (15:22)
[2017-12-14] MEDS: PRAMIPEXOLE 0.25 MG TAB PO SCH ×2 (15:22→21:09)
--- NOTE | 2017-12-14 15:23 | ASMTCMCOM ---
CM Note CM Note Notes: Chart reviewed. Patient is a 72 year old female with history significant for pancreatic cancer. S/P whipple in August. She shares she did well after the surgery and is now discouraged that she has had a decline since surgery with abdominal pain, projectile vomiting and large weight loss. She feel very weak and unable to perform her ADL's without assistance. She lives with her daughter in the downstairs area and tires easily on the stairs. Pe PT and OT, recommending Home with HHC vs SNF. Need to address nutritional deficits. She has supportive family. Oncology in to see patient. CM to follow. Plan: TBD Date Signed: 12/14/2017 03:22 PM Electronically Signed By:Felicia Motley RN
--- NOTE | 2017-12-14 15:52 | PDMN ---
Medical Necessity Medical necessity: change to IP; los>2mn for N/V and associated weakness, r/o PUD vs obstructive process vs gastroparesis; requires CT imaging, PPI, PT/OT, symptom control; comorbid pancreatic CA s/p Whipple, DM, HTN, and asthma; per order and progress note 12/14/17
--- NOTE | 2017-12-14 16:55 | GCON ---
[f rep st] CONSULTATION ONCOLOGY INITIAL VISIT PRIMARY ONCOLOGIST: Dr. Yon Elias. REASON FOR VISIT: E and M for pancreatic cancer. HISTORY OF PRESENT ILLNESS: The patient is a 72-year-old woman who was diagnosed in August 07, 2017 , with a pancreatic cancer. This was on CT scan when she presented with abdominal pain. She had an MRCP which showed a lesion in the pancreas, which was confirmed by Dr. Dougherty on August 07. He biop sied and confirmed adenocarcinoma with negative nodes. She underwent a Whipple procedure by Dr. Nahid Hernandez. Her spleen was not removed. Final tumor was 3.2 cm, poorly differentiated. Margins were ne gative, although close to the portal vein and 1/10 nodes contain cancer. Postoperatively, she was do ing reasonably well and Dr. Elias tried adjuvant gemcitabine, but she tolerated it poorly, so stop ped after the fist cycle. Lately over the last several weeks, she has been feeling poorly. She has had a 35 pounds weight loss and trouble keeping food down. If she misses a dose of Reglan and she will have projectile vomiting . She also has chronic nausea and generally controlled with Zofran. She states that these symptoms are similar for when she had an ulcer when she was in her 20s. She has mild dysuria, but no fever. She also had 3-4 stools in the morning that are light colored, floating, and foul smelling. She trie d taking pancreatic enzymes in the past, but the large tablets make her gag. She was brought into e ER when a friend went over and she was having difficulty even getting up out of bed because of fati michael and weakness. She is feeling a little bit better after fluids. ALLERGIES: She is allergic to iodine, Betadine, sulfa, acetaminophen, oxycodone. HOME MEDICATIONS: Include: Reglan, metoprolol, insulin, lisinopril, levothyroxine, clopidogrel, Hakeem apex, pantoprazole, and lovastatin. PAST MEDICAL HISTORY: Chronic illnesses, include: 1. Pancreatic cancer as per HPI. 2. Hypertension. 3. Coronary artery disease with stent 2013. 4. Hypothyroidism. 5. Type 2 diabetes. 6. Asthma. 7. Restless legs syndrome. PAST SURGICAL HISTORY: Includes a Whipple as described above, hysterectomy, bladder sling, cholecyst ectomy, cardiac cath with stent placement, cataract extraction, breast augmentation and then subseque nt removal due to leak, partial thyroidectomy, bilateral total hip replacement, and right total knee replacement. FAMILY HISTORY: Significant for mother with pancreatic cancer. SOCIAL HISTORY: She does not smoke or drink. She lives with her daughter. REVIEW OF SYSTEMS: 10-point review of systems performed, pertinent positives as per HPI, otherwise n egative. PHYSICAL EXAMINATION: VITAL SIGNS: Temperature is 36.6, pulse is 77, blood pressure is currently 15 8/79. GENERAL: She is frustrated, but in no distress. HEENT: Unremarkable. LUNGS: Clear. CARDI AC: Regular without murmur. ABDOMEN: Soft. Tender in the mid epigastric. She has hyperactive bow el sounds. NEURO: Grossly intact. LABORATORY DATA: CBC is unremarkable. Chemistries: Albumin is 2.7. UA showed 3+ leukocyte esteras e, but no bacteria. Culture is pending. IMPRESSION: 1. Persistent gastrointestinal issues, post Whipple, which seem most consistent with gastroparesis. 2. Probable pancreatic insufficiency. 3. Pancreatic cancer, status post resection in August. Last CT scan in October showed no evidence o f recurrence. 4. Diabetes. Not sure exactly what is causing most of her problems. Her bowels are hyperactive and seems like Reg clementina is helping, but she still has these episodes of nausea, vomiting, and having pain. I spoke with Dr. Mendez with GI. He said it is possible having an anastomotic ulcer, and he will see her and reques dmitriy I make her n.p.o. for possible upper endoscopy tomorrow. As for the pancreatic enzymes, I think her stools and bowels would improve if she had replacement, bu t I am not sure how best we will go about it. I spoke with Dr. Webb, he is also going to get a CT scan of her abdomen, which is reasonable. We will follow along with you while she is in the [facility]. /[id number]/MODL
[2017-12-14] MEDS ORDERED: IOPAMIDOL (ISOVUE-300) 100 ML BTL ONE ×2 (17:13→17:49)
[2017-12-14] MEDS ORDERED: LIPASE 12,000/AMYLASE/PROTEASE (CREON) 1 CAP PO SCH (18:00)
[2017-12-14] MEDS ORDERED: LABETALOL HCL 5 MG/ML 20 ML MDV IVP PRN (19:52)
[2017-12-14] MEDS ORDERED: amLODIPine BESYLATE 5 MG TAB PO SCH (20:00)
[2017-12-14] MEDS: SUCRALFATE 1 GM/10 ML UDCUP PO SCH ×2 (20:08→21:13)
[2017-12-14] MEDS: PRAMIPEXOLE 1 MG TAB PO SCH (21:15)
--- NOTE | 2017-12-14 23:02 | GCON ---
[f rep st] CONSULTATION GI INPATIENT CONSULTATION. DATE OF CONSULTATION: 12/14/2017 I was kindly requested to see the patient by Dr. Valarie Fan in consultation for chief complaint of digestive symptoms. She is a 72-year-old white female who was diagnosed with pancreatic cancer this year. In August, she underwent a Whipple surgery with Dr. Nicko Hernandez, which included partial removal of her stomach. Since this surgery, she has had decreased appetite, and has lost over 35 pounds. She will have some indigestion with all types of oral intake, including liquids or solids. As an outpatient, she has used Reglan 5 mg before meals and before bed, which helps. She has also used Zofran as needed for nausea, which helps. She has an apparent distant history of an ulcer, and wonders if the above symptoms are due to a return. She denies aspirin, nonsteroidals. CT scan in October apparently showed no evidence of recurrence. She has diabetes, type 2. She is on a significant amount of medications including Mirapex, Plavix, lisinopril, lovastatin, metoprolol. PAST MEDICAL HISTORY: 1. As above. 2. Hypertension. 3. CAD with a cardiac stent. 4. Hypothyroidism. 5. Asthma. 6. Restless legs syndrome. 7. Status post cholecystectomy. 8. Status post partial thyroidectomy. 9. Otherwise, noncontributory. ALLERGIES: Include Betadine, sulfa, soap and oxycodone. MEDICATIONS: Outpatient medications: Carafate 1 g four times daily. Inpatient medications include Carafate suspension 1 g four times daily, Lovenox , metered dose inhaler, Creon, Plavix, Pravachol, scopolamine patch, IV fluids, insulin, Synthroid, Zestril and Lopressor. SOCIAL HISTORY: She denies alcohol intake. FAMILY HISTORY: Negative for similar dyspepsia. REVIEW OF SYSTEMS: Positive pertinent review of systems as per my HPI. Otherwise, complete review of systems is negative. PHYSICAL EXAM: CONSTITUTIONAL: A nontoxic appearing woman. SKIN: Warm, dry. EYES: Pupils equal, round, reactive to light and accommodation. EARS, NOSE, MOUTH, AND THROAT: Oropharynx without masses, moist mucosa. CARDIOVASCULAR: Normal S2, normal PMI. RESPIRATORY: Lungs clear to auscultation and percussion anteriorly. GASTROINTESTINAL: Abdomen nontender without masses. NEUROLOGIC: Grossly nonfocal, cranial nerves grossly intact. PSYCHIATRIC: Orientation and insight appropriate. MUSCULOSKELETAL: Strength grossly normal throughout, normal station. LABORATORIES: Include hematocrit 37.3%, which is stable. Urinalysis with 15- 25 white blood cells per high-power field, with a culture showing gram-negative rods. TSH slightly elevated at 6.2, but a normal free T4 and total T3. Normal CMP except for a slightly elevated AST of 47. ASSESSMENT: Chronic symptoms of decreased appetite, weight loss, dyspepsia, nausea since her Whipple surgery in August. Certainly, an upper gastrointestinal structural lesion, such anastomotic ulcer, stricture, etc., is possible. Another strong possibility, with the above surgery and her known diabetes, is postoperative gastroparesis. Finally, with her significant outpatient medication list, including Plavix, etc., a drug-induced side effect causing nausea, anorexia and dyspepsia is possible. PLAN: 1. Upper endoscopy. Certainly, with her age, recent pancreatic cancer, recent major surgery, coronary artery disease, thyroid disorder, diabetes, asthma, hypertension, etc., she is at increased risk for this procedure. However, suspected the benefits outweigh the risks, and suspect she would do well. 2. Pending on the above, she might not require pantoprazole or sucralfate. I am not sure that this necessarily an acid-peptic problem. 3. She appears to have a urinary tract infection. She received 1 dose of ceftriaxone in the emergency department. Question whether she needs more antibiotics; as per the hospitalist service. 4. Continue her outpatient Reglan and Zofran, which seems to help. 5. Further management, such as a trial off all of her outpatient medications, depending on the above. Thank you for allowing me to help in the care of this patient. /[id number]/MODL MTDD
[2017-12-15] MEDS: ONDANSETRON 4 MG/2 ML VIAL IVP PRN ×2 (06:30→20:55)
[2017-12-15] MEDS: METOCLOPRAMIDE 10 MG/2 ML VIAL IVP PRN (08:49)
[2017-12-15] MEDS: ENOXAPARIN 40 MG/0.4 ML SYR SC SCH (09:47)
[2017-12-15] MEDS: INSULIN LISPRO 100 UNIT/ML SC SCH ×4 (09:47→20:44)
--- NOTE | 2017-12-15 09:53 | PDANEPAE ---
ANE History of Present Illness EGD ANE Past Medical History - Cardiovascular History Hx Hypertension: Yes Hx Arrhythmias: No Hx Chest Pain: No Hx Coronary Artery / Peripheral Vascular Disease: Yes Hx CHF / Valvular Disease: No Hx Palpitations: No - Pulmonary History Hx COPD: No Hx Asthma/Reactive Airway Disease: No Hx Recent Upper Respiratory Infection: No Hx Oxygen in Use at Home: No Hx Sleep Apnea: Yes Sleep Apnea Screening Result - Last Documented: Positive - Endocrine History Hx Diabetes: Yes Obesity: no ANE Review of Systems Review of systems is: negative Review of Systems: ANE Patient History - Allergies Allergies/Adverse Reactions: povidone-iodine [From Betadine] Allergy (Severe, Verified 07/26/15 18:48) Hives soap [From Betadine] Allergy (Severe, Verified 07/26/15 18:48) Hives Sulfa (Sulfonamide Antibiotics) Allergy (Severe, Verified 07/26/15 18:48) Hives acetaminophen [From Percocet] Allergy (Intermediate, Verified 07/26/15 18:48) Vomiting oxycodone HCl [From Percocet] Allergy (Intermediate, Verified 07/26/15 18:48) Vomiting - Home Medications Home medications: home medication list seen and reviewed Home Medications: Clopidogrel Bisulfate [Plavix (*)] 75 mg PO DAILY@07/20/15 [Last Taken ] Levothyroxine [Synthroid 100 mcg (*)] 100 mcg PO DAILY@07/20/15 [Last Taken 12/13/17] Pantoprazole Sodium [Protonix 40mg (*)] 40 mg PO DAILY@07/20/15 [Last Taken 12/13/17] Pramipexole Di-HCl [Mirapex 0.25 mg (*)] 0.5 mg PO DAILY 07/20/15 [Last Taken ] Lisinopril [Zestril 20 mg (*)] 20 mg PO DAILY@07/26/15 [Last Taken 12/13/17] Lovastatin 10 mg PO DAILY@04/20/17 [Last Taken 12/13/17] Pramipexole Di-HCl [Mirapex 1 mg (*)] 1 mg PO DAILY18 04/20/17 [Last Taken 12/12] Insulin NPH Human [HumuLIN N] 5 units SQ HS 12/13/17 [Last Taken 12/12/17] Insulin NPH Human [HumuLIN N] 6 units SQ DAILY 12/13/17 [Last Taken 12/13/17] Metoclopramide [Reglan 5 mg (*)] 5 mg PO ACHS 12/13/17 [Last Taken 12/13/17 12: 00] Metoprolol Tartrate [Lopressor 25 mg (*)] 12.5 mg PO DAILY 12/13/17 [Last Taken 12/13/17] - NPO status NPO Since - Liquids (Date): 12/15/17 NPO Since - Liquids (Time): 00:00 NPO Since - Solids (Date): 12/15/17 NPO Since - Solids (Time): 00:00 - Smoking Hx Smoking Status: Never smoked ANE Labs/Vital Signs - Labs Result Diagrams: 12/14/17 03:30 12/14/17 03:30 - Vital Signs Blood Pressure: 116/62 Heart Rate: 86 Respiratory Rate: 16 O2 Sat (%): 93 Height: 167.64 cm Weight: 70 kg ANE Physical Exam - Airway Neck exam: FROM Mallampati Score: Class 1 Mouth exam: normal dental/mouth exam - Pulmonary Pulmonary: no respiratory distress - Cardiovascular Cardiovascular: regular rate and rhythym - ASA Status ASA Status: III ANE Anesthesia Plan Anesthesia Plan: GA with mask
[2017-12-15] MEDS ORDERED: LR 1,000 ML IV ONE ×2 (10:00→10:19)
[2017-12-15] MEDS ORDERED: PROPOFOL 200 MG/20 ML VIAL ONE (10:46)
[2017-12-15] MEDS ORDERED: LIDOCAINE 2% 5 ML SDV ONE (10:52)
[2017-12-15] MEDS ORDERED: PROMETHAZINE HCL 25 MG/ML INJ IVP PRN (10:53)
[2017-12-15] MEDS ORDERED: HYDROmorphONE/DILAUDID 1 MG/ML INJ IVP PRN (10:53)
[2017-12-15] MEDS ORDERED: oxyCODONE IR 5 MG TAB PO PRN (10:53)
[2017-12-15] MEDS ORDERED: ONDANSETRON 4 MG/2 ML VIAL IVP PRN (10:53)
[2017-12-15] MEDS ORDERED: LABETALOL HCL 5 MG/ML 20 ML MDV IVP PRN (10:53)
[2017-12-15] MEDS ORDERED: ACETAMINOPHEN 500 MG TAB PO PRN (10:53)
[2017-12-15] MEDS ORDERED: fentaNYL 100 MCG/2 ML INJ IVP PRN (10:53)
[2017-12-15] MEDS ORDERED: NALOXONE HCL 0.4 MG/ML INJ IVP PRN (10:53)
[2017-12-15] MEDS ORDERED: ALBUTEROL 3 ML DEYVIAL IH PRN (10:53)
[2017-12-15] MEDS ORDERED: METOCLOPRAMIDE 10 MG/2 ML VIAL IVP PRN (10:53)
[2017-12-15] MEDS ORDERED: LR 500 ML IV PRN (10:53)
[2017-12-15] MEDS ORDERED: HYDROCODONE/APAP 5/325 TAB PO PRN (10:53)
--- NOTE | 2017-12-15 10:53 | POSTANESTH ---
Post Anesthetic Evaluation Cardiovascular Status: Normal, Stable Respiratory Status: Normal, Stable Level of Consciousness/Mental Status: Can Participate in Eval, Mildly Sleepy, Arousable Pain Control: Adequate, Prn Tx Ordered Nausea/Vomiting Control: Adequate, Prn Tx Ordered Complications Possibly Related to Anesthesia: None Noted
--- NOTE | 2017-12-15 11:34 | GIREPORT ---
[facility] Surgical Services - Endoscopy Department Patient Name: Sarah Beth Oneill Procedure Date: 12/15/2017 10:44 AM Patient Type: Inpatient Attending MD/ ER Physician: Louis Mendez MD Procedure: Upper GI endoscopy Indications: Nausea, wt. loss, dyspepsia. Denies heartburn. Else, please see my cons ult note from yesterday. Providers: Louis Mendez MD, FACG Referring MD: Yon Elias MD; Sue Robledo MD; Nicko Hernandez MD; Valarie Fan MD Medicines: See the Anesthesia note for documentation of the administered medicatio ns Complications: No immediate complications. Description of Procedure: After obtaining informed consent, the endoscope was passed under direct vision. Throughout the procedure, the patient's blood pressure, pulse, and oxygen saturations were monitored continuously. The Endoscope was intro duced through the mouth, and advanced to the second part of duodenum. Findings: The esophagus was normal. The entire examined stomach was normal, except for being s/p partial resection, as part of her Whipple's. Biopsies were taken with a cold fo rceps for Helicobacter pylori testing from the distal and proximal stomach. N o gastritis, ulcer, stricture, cancer, etc., seen. The examined efferent and afferent loops were normal. Estimated Blood Loss: Estimated blood loss: none. Post Op Diagnosis: - Suspect nausea and related symptoms may be due to gastroparesis, from both her surgery and underlying diabetes. However, with her multiple medicat ions, a drug side-effect is also very possible. Recommendation: - feed - d/c pantoprazole, sucralfate (I do not think her symptoms are acid-pe ptic in nature). - recommend routine reglan, instead of prn. As an outpt., she was on 5 mg AC and qHS. Recommend trying 10 mg. - recommend a "drug holiday" from all of her other medications, other t valero zofran. If this helps after several weeks, then necessary ones can be restarted one at a time, to identify the culprit. As per hospitalist, oncologist, PCP. - pathology results pending, to r/o H. pylori, with her past ulcer hist ory (doubt). I will sign off; I will f/u on bx results. Else, please call if we can be of further help [phone] Thank you for allowing me to help in the management of this patient. Attending Participation: I personally performed the entire procedure. Vanessa Myers MD Louis Mendez MD 12/15/2017 11:34:27 AM This report has been signed electronicallyPeter MD Vanessa Number of Addenda: 0 Note Initiated On: 12/15/2017 10:44 AM [email or web address]
[2017-12-15] MEDS: SUCRALFATE 1 GM/10 ML UDCUP PO SCH (11:57)
[2017-12-15] MEDS: LORazepam 2 MG/ML INJ IVP PRN (12:26)
[2017-12-15] MEDS: LIPASE 24,000/AMYLASE/PROTEASE (CREON) 1 CAP PO SCH ×3 (12:34→17:15)
[2017-12-15] MEDS: LEVOTHYROXINE 100 MCG TAB PO SCH (12:37)
[2017-12-15] MEDS: LISINOPRIL 20 MG TAB PO SCH (12:39)
[2017-12-15] MEDS: CLOPIDOGREL BISULFATE 75 MG TAB PO SCH (12:39)
[2017-12-15] MEDS: METOPROLOL TARTRATE 25 MG TAB PO SCH ×2 (12:40→20:54)
[2017-12-15] MEDS: PRAVASTATIN SODIUM 10 MG TAB PO SCH (12:40)
[2017-12-15] MEDS: PRAMIPEXOLE 0.25 MG TAB PO SCH (13:44)
--- NOTE | 2017-12-15 14:50 | SOAPPROG ---
SOAP Progress Note Assessment/Plan: E&M for Pancreatic cancer * Stage II Pancreatic Cancer s/p Whipple: no evidence of recurrence on CT * Vomiting: appreciate GI's assistance; suspect gastroparesis * Wt loss and oily stools: suspect pancreatic insufficiency; when recovered can look to see if there is a pancreas enzyme she can tolerate. Subjective: Just back from EGD - prelim was that it was ok. Objective: Vital Signs Temp Pulse Resp BP Pulse Ox 36.8 C 86 16 187/86 H 93 12/15/17 11:22 12/15/17 12:40 12/15/17 11:50 12/15/17 12:40 12/15/17 11:50 12/14/17 12/15/17 12/16/17 05:59 05:59 05:59 Intake Total [address] Scan of the Abdomen and Pelvis (With Contrast) Impression: 1. Postsurgical changes of Whipple procedure. No definite recurrent mass or suspicious lymphadenopathy. 2. Severe fatty infiltration of the liver. Mild pneumobilia. Status post cholecystectomy. 3. Mild constipation. Diverticulosis sigmoid colon, without definite diverticulitis. No evidence for a small bowel obstruction. Dictated By: Regan Esquivel MD Physical Exam - Physical Exam General Appearance: no apparent distress Respiratory: lungs clear Cardiac/Chest: regular rate, rhythm Abdomen: normal bowel sounds ICD10 Worksheet Patient Problems: Problems Problem Status Onset Nausea & vomiting Acute UTI (urinary tract infection) Acute
--- NOTE | 2017-12-15 16:02 | HOSPPROG ---
Hospitalist Progress Note Assessment/Plan: Nausea and vomiting - Reviewed EGD note by Dr. Mendez, no PUD, suspect gastroparesis. -PPI/sucralfate d/c'd per GI, doubts acid related -schedule reglan ACHS for symptom management -check MRI brain in am to r/o central source of symptoms Weakness / FTT - partly due to above, poor oral intake. -PT/OT evals -dietary consult Pancreatic cancer s/p whipple and SBO in 08/2017 - followed by Dr. Elias. Didn't tolerate chemo for very long, now off chemo. -oncology following Hypertension - poor control. -cont metoprolol which was up-titrated -add norvasc -prn hydralazine CAD s/p stent 2017 - Stable, cont plavix, BB, williams, statin. DM type 2 - hypoglycemic on arrival, BG's better now in 100's -cont to hold NPH given poor oral intake, favor SSI for now Asthma - no acute exac Hypothyroidism - cont home meds Full code DVT PPLX - high risk, Lovenox Dispo - cont inpt for ongoing management of N/V and associated weakness. Cont PT /OT. May require SNF. CM consult requested. Subjective: Pt continues to have vomiting, 5 times today she reports. She was however able to tolerate several glasses of water without vomiting. She is intermittently confused, speech a bit delayed. No fevers/chills. No abdominal pain. Objective: Vital Signs Temp Pulse Resp BP Pulse Ox 36.8 C 86 16 187/86 H 93 12/15/17 11:22 12/15/17 12:40 12/15/17 11:50 12/15/17 12:40 12/15/17 11:50 12/14/17 12/15/17 12/16/17 05:59 05:59 05:59 Intake Total 325 Balance 325 - Physical Exam Constitutional: no apparent distress Eyes: PERRL Ears, Nose, Mouth, Throat: moist mucous membranes Cardiovascular: regular rate and rhythym Respiratory: no respiratory distress, clear to auscultation Gastrointestinal: normoactive bowel sounds, soft, non-tender abdomen Skin: warm Musculoskeletal: full muscle strength Neurologic: AAOx3 ICD10 Worksheet Patient Problems: Problems Problem Status Onset Nausea & vomiting Acute UTI (urinary tract infection) Acute
[2017-12-15] MEDS: amLODIPine BESYLATE 5 MG TAB PO SCH (17:16)
[2017-12-15] MEDS: PRAMIPEXOLE 1 MG TAB PO SCH (17:17)
[2017-12-15] MEDS: METOCLOPRAMIDE 10 MG/2 ML VIAL IVP SCH ×2 (17:18→20:55)
--- NOTE | 2017-12-16 06:32 | HOSPPROG ---
Hospitalist Progress Note Assessment/Plan: Nausea and vomiting - Reviewed EGD note by Dr. Mendez, no PUD, suspect gastroparesis. -PPI/sucralfate d/c'd per GI, doubts acid related -cont scheduled reglan ACHS for symptom management -check MRI brain today to r/o central source of symptoms Weakness / FTT - partly due to above, poor oral intake. -PT/OT evals recommending HHC vs SNF -dietary consult Pancreatic cancer s/p whipple and SBO in 08/2017 - followed by Dr. Elias. Didn't tolerate chemo for very long, now off chemo. -oncology following Hypertension - poor control, though improving -cont metoprolol which was up-titrated -added norvasc yest -prn hydralazine CAD s/p stent 2017 - Stable, cont plavix, BB, williams, statin. DM type 2 - hypoglycemic on arrival, BG's better now in 100's -cont to hold NPH given poor oral intake, favor SSI for now Pyuria - No symptoms, afebrile, nl wbc's. UA neg nitrates, no bact. UCx polymicrobial and low colony count. -picture not c/w UTI, defer atbx Asthma - no acute exac Hypothyroidism - cont home meds Full code DVT PPLX - high risk, Lovenox Dispo - cont inpt for ongoing management of N/V and associated weakness. Cont PT /OT. May require SNF. CM consult requested. Objective: Vital Signs Temp Pulse Resp BP Pulse Ox 36.6 C 77 18 162/95 H 92 12/16/17 04:20 12/16/17 04:20 12/16/17 04:20 12/16/17 04:20 12/16/17 04:20 12/15/17 12/16/17 12/17/17 05:59 05:59 05:59 Intake Total 2440 Balance 2440 ICD10 Worksheet Patient Problems: Problems Problem Status Onset Nausea & vomiting Acute UTI (urinary tract infection) Acute
[2017-12-16 07:30] VITALS: BP 146/85
[2017-12-16] MEDS: METOCLOPRAMIDE 10 MG/2 ML VIAL IVP SCH ×2 (07:43→11:40)
[2017-12-16] MEDS: INSULIN LISPRO 100 UNIT/ML SC SCH ×2 (07:43→11:48)
[2017-12-16] MEDS: LIPASE 24,000/AMYLASE/PROTEASE (CREON) 1 CAP PO SCH ×2 (07:44→11:40)
[2017-12-16] MEDS: PRAVASTATIN SODIUM 10 MG TAB PO SCH (07:50)
[2017-12-16] MEDS: PRAMIPEXOLE 0.25 MG TAB PO SCH (07:50)
[2017-12-16] MEDS: amLODIPine BESYLATE 5 MG TAB PO SCH (07:50)
[2017-12-16] MEDS: METOPROLOL TARTRATE 25 MG TAB PO SCH (07:51)
[2017-12-16] MEDS ORDERED: GADOBUTROL 10 ML VIAL IVP ONE (08:23)
--- NOTE | 2017-12-16 09:22 | SOAPPROG ---
MARCIANO Progress Note Assessment/Plan: Assessment: 1. Pancreatic cancer s/p whipple T3N1 2. Diabetes 3. Gastroparesis Plan: - brain MRI to rule out central cause of gastroparesis - reglan 10 mg q6-q12 scheduled. I suspect patient is not taking her medication regularly at home. she asked if Reglan was "habit forming." I told her that it was not and that she needs to take the Reglan on schedule to prevent symptoms. - no evidence of recurrent pancreatic cancer. 25 min spent w/ pt and in coordination of care. 12/16/17 09:20 Subjective: still feeling nauseated. "if I am 30 seconds late with the Reglan I will throw up." Objective: exam: tired appearing, NAD Lungs CTAB CV RRR no MGR Abd: +BS NT ND Ext: no edema Vital Signs Temp Pulse Resp BP Pulse Ox 36.8 C 79 16 146/85 H 93 12/16/17 07:29 12/16/17 07:51 12/16/17 07:29 12/16/17 07:51 12/16/17 07:29 12/15/17 12/16/17 12/17/17 05:59 05:59 05:59 Intake Total 2440 Balance 2440 ICD10 Worksheet Patient Problems: Problems Problem Status Onset Nausea & vomiting Acute UTI (urinary tract infection) Acute
[2017-12-16] MEDS: ENOXAPARIN 40 MG/0.4 ML SYR SC SCH (11:26)
[2017-12-16] MEDS: CLOPIDOGREL BISULFATE 75 MG TAB PO SCH (11:39)
[2017-12-16] MEDS: LEVOTHYROXINE 100 MCG TAB PO SCH (11:39)
[2017-12-16] MEDS: LISINOPRIL 20 MG TAB PO SCH (11:39)
--- NOTE | 2017-12-16 14:52 | PDIAF ---
- Diagnosis Diagnosis: pancreatic cancer, s/p whipple, gastroparesis Code Status: Full Code - Medication Management Discharge Medications: Medications to Continue on Transfer Clopidogrel Bisulfate [Plavix (*)] 75 mg PO DAILY@12 07/20/15 [Last Taken ] Levothyroxine [Synthroid 100 mcg (*)] 100 mcg PO DAILY@12 07/20/15 [Last Taken 12/13/17] Pantoprazole Sodium [Protonix 40mg (*)] 40 mg PO DAILY@07/20/15 [Last Taken 12/13/17] Pramipexole Di-HCl [Mirapex 0.25 mg (*)] 0.5 mg PO DAILY 07/20/15 [Last Taken ] Lisinopril [Zestril 20 mg (*)] 20 mg PO DAILY@07/26/15 [Last Taken 12/13/17] Lovastatin 10 mg PO DAILY@12 04/20/17 [Last Taken 12/13/17] Pramipexole Di-HCl [Mirapex 1 mg (*)] 1 mg PO DAILY18 04/20/17 [Last Taken 12/12] Metoclopramide [Reglan 5 mg (*)] 5 mg PO ACHS 12/13/17 [Last Taken 12/13/17 12: 00] Metoprolol Tartrate [Lopressor 25 mg (*)] 12.5 mg PO DAILY 12/13/17 [Last Taken 12/13/17] Lipase 24,000/Amylase/Protease [Creon 24 (*)] 1 cap PO TIDMEAL cap 12/16/17 [ Last Taken Unknown] amLODIPine BESYLATE [Norvasc 5 mg (*)] 5 mg PO DAILY #30 tab 12/16/17 [Last Taken Unknown] Discharge Medications: Refer to the Discharge Home Medication list for PRN reason. - Orders Services needed: Home Care, Registered Nurse, Physical Therapy, Occupational Therapy Home Care Face to Face: I certify that this patient was under my care and that I had the required [id number] encounter meeting the encounter requirements on the discharge day. My findings support the fact that the patient is homebound as defined in Home Care Face to Face Continued: CMS Chapter 7 Medicare Benefits Manual 30.1.1 , The condition of the patient is such that there exists a normal inability to leave home and consequently, leaving home would require a considerable and taxing effort. Diet Recommendation: no restrictions on diet Additional Instructions: Continue the Reglan and Creon. I recommend you stop your NPH insulin for now. Your blood sugar was low on arrival and NPH can cause dangerously low blood sugars. Without any insulin here, you have had blood sugars in the 100's. So no NPH at this time. Norvasc is added for blood pressure control. In addition, we increased your Metoprolol. - Follow Up Care Current Providers and Referrals: Yon Elias MD [Medical Doctor] - Louis Mendez MD, FACG [Medical Doctor] - Sue Robledo MD [Primary Care Provider] - As per Instructions
--- NOTE | 2017-12-16 15:21 | ASMTLACE ---
LACE Length of stay for Answers: 2 days current admission Acuity / Level of Answers: Yes Care: Did the patient have an inpatient admission? Comorbidities - select Answers: Any tumor (including all that apply lymphoma or leukemia) Coronary Artery Disease Diabetes (uncontrolled or controlled) Other Notes: Whipple procedure; HTN # of Emergency department Answers: 1-2 visits in the last 6 months Score: 12 Date Signed: 12/16/2017 03:20 PM Electronically Signed By:Karli Cheung RN
--- NOTE | 2017-12-16 15:24 | ASMTCMCOM ---
CM Note CM Note Notes: Spoke w/RN, pt can dc home w/homecare. Does not need SNF, CM arranged homecare w/[facility]. DC Plan: Home Care/ [facility] (RN/PT/OT) Date Signed: 12/16/2017 03:24 PM Electronically Signed By:Karli Cheung RN
--- NOTE | 2017-12-16 23:31 | GDS ---
[f rep st] DISCHARGE SUMMARY DISCHARGE DIAGNOSES: 1. Nausea and vomiting secondary to gastroparesis, condition improved. 2. Pancreatic cancer status post Whipple and small bowel obstruction in August 2017. 3. Weakness and failure to thrive. 4. Hypertension. 5. Coronary artery disease status post stent in 2018. 6. Diabetes mellitus type 2. 7. Asthma. 8. Hypothyroidism. CONSULTANTS: 1. Valarie Fan MD., oncology. 2. Louis Mendez MD FACG., gastroenterology. HISTORY: For details, please see history and physical dated December 13, 2017. In brief, the patient is a 72-year-old female with history of pancreatic cancer, who underwent Whipple procedure in August 2017, and presents to the hospital with refractory nausea and vomiting. HOSPITAL COURSE: The patient was admitted to the oncology unit. She was treated symptomatically wit h Zofran, Reglan, scopolamine, and Ativan. She underwent upper endoscopy which did not reveal a sour ce of her symptoms. It is presumed she has gastroparesis secondary to her Whipple procedure, and she has been quite responsive to Reglan. An MRI of her brain was negative for a central source of her r efractory nausea and vomiting. In addition, there was no evidence of metastatic disease. On the day of discharge, she is tolerating a full diet. Her symptoms have resolved. She has had no further vo miting today. She was evaluated by therapy services and is agreeable to home health care for ongoing therapy and strengthening. In addition, she had issues with hypertension. Her blood pressure on admission was 200/90. This was slowly lowered. Her metoprolol was doubled to 25 mg twice b.i.d., and Norvasc was added to her eladia men. Her blood pressure on discharge was 146/85. She should have close outpatient followup with her primary care physician. DISPOSITION: Patient is discharged home in stable condition. FOLLOWUP: 1. Yon Elias MD., at [facility]. 2. Louis Mendez MD FACG, gastroenterology. 3. Sue Robledo MD., primary care. DISCHARGE MEDICATIONS: Please see Daio for completed outpatient medication list. New medication s on discharge include amlodipine 5 mg p.o. daily #30 no refills, Creon 1 capsule p.o. t.i.d. Change d medications: Her metoprolol is increased to 25 mg p.o. b.i.d., and she will continue all her other outpatient medications as previously prescribed. Discontinued medicines: I recommend she stop her NPH as she had hypoglycemia on arrival. She did not receive any insulin throughout the hospitalizati on. Her blood sugar remained in the 100s. /[id number]/MODL
[2017-12-17] MEDS ORDERED: PATCH REMOVAL 1 EA PATCH TD SCH (13:25)
== END 2017-12-16 15:13 | disposition home or self-care (01) | DRG 392 ==
LOC: F2N 23:10 → F1N 12-14 08:24 → OBSVTOIN 12-14 13:37
PROVIDERS: ADMIT Student in an Organized Health Care Education/Training Program; ATTEND Student in an Organized Health Care Education/Training Program
PROC: 0DB68ZX Excision of Stomach, Via Natural or Artificial Opening Endoscopic, Diagnostic (ICD-10-PCS; principal; 2017-12-15 11:30)
DX: K31.84 Gastroparesis (principal); C25.7 Malignant neoplasm of other parts of pancreas; E11.649 Type 2 diabetes mellitus with hypoglycemia without coma; E86.0 Dehydration; R62.7 Adult failure to thrive; I10 Essential (primary) hypertension; I25.10 Atherosclerotic heart disease of native coronary artery without angina pectoris; J45.909 Unspecified asthma, uncomplicated; E03.9 Hypothyroidism, unspecified; Z95.5 Presence of coronary angioplasty implant and graft
CPT/HCPCS: 82435-PO; 82565-PO; 82947-PO; 84132-PO; 84134-90; 84295-PO; 84480-90; 84484-PO; 84520-PO; 85014-PO; 96374; 97110-GP; 97116-GP; 97162-GP; 97166-GO; 97530-GO; 97535-GO; A9585; G0378; G8978-GP-CJ; G8979-GP-CI; G8987-GO-CJ; G8988-GO-CI; J0360; J0696; J1650; J2060; J2405; J2704; J2765; Q9967

== ENCOUNTER 2018-07-25 12:12 | Inpatient (IN) | payer OTHER, MEDICARE ==
[2018-07-25 13:05] LABS: PLATELET COUNT 157 10^3/uL (150-400)
--- NOTE | 2018-07-25 13:30 | EDPHY ---
H & P Stated Complaint: Left sided chest pain for 2 days. Time Seen by Provider: 07/25/18 12:58 HPI/ROS: CHIEF COMPLAINT: Chest pain, shortness of breath HISTORY OF PRESENT ILLNESS: 72-year-old female with diabetes and pancreatic cancer presents with chest pain and shortness of breath. Onset of left-sided chest pain 2 days ago. The pain is moderate, constant and increases with inspiration. Associated with gradually increasing shortness of breath and chills. 1 episode of vomiting yesterday evening. No cough or other respiratory symptoms. No known fever. No alleviating or aggravating factors. Prior history of pneumonia. No prior history of thromboembolism. REVIEW OF SYSTEMS: complete 10 point ROS reviewed and is negative except for the noted elements in the HPI - Personal History Current Tetanus Diphtheria and Acellular Pertussis (TDAP): Yes Tetanus Vaccine Date: within 10 yrs - Medical/Surgical History Hx Asthma: Yes Hx Chronic Respiratory Disease: No Hx Diabetes: Yes Hx Cardiac Disease: Yes Hx Renal Disease: No Hx Cirrhosis: No Hx Alcoholism: No Hx HIV/AIDS: No Hx Splenectomy or Spleen Trauma: No Other PMH: htn, cardiac stent, angioplasty, hypothyroidism, hyst, bladder sling , breast surg, cataract surg, gall bladder surg, restless leg syndrome. DM2. Whipple Aug 2017. knee replacementx1. hip replacementx2 - Social History Smoking Status: Never smoked Drug Use: None - Physical Exam Exam: General Appearance: Alert, pleasant and talkative, nontoxic-appearing Eyes: Pupils equal and round, no conjunctival pallor or injection ENT, Mouth: Mucous membranes moist Neck: Normal inspection Respiratory: Tachypnea, Lungs are clear to auscultation Cardiovascular: Regular tachycardia, heart rate 100 Gastrointestinal: Abdomen is soft and nontender Neurological: A&O, nonfocal exam Skin: Warm and dry Extremities: Nontender, no pedal edema, negative Homans sign Psychiatric: Mood and affect normal Constitutional: Initial Vital Signs Heart Rate 120 H 07/25/18 12:16 Respiratory Rate 24 H 07/25/18 12:16 Blood Pressure 182/82 H 07/25/18 12:16 O2 Sat (%) 99 07/25/18 12:16 O2 Delivery Mode Nasal Cannula O2 (L/minute) 1 Allergies/Adverse Reactions: Sulfa (Sulfonamide Antibiotics) Allergy (Severe, Verified 07/25/18 14:23) Hives oxycodone HCl [From Percocet] Allergy (Intermediate, Verified 07/25/18 14:23) Vomiting povidone-iodine Allergy (Unknown, Verified 07/26/18 06:28) Hives oxycodone HCl Allergy (Unknown, Uncoded 07/25/18 14:23) Vomiting Home Medications: Medication Instructions Recorded Clopidogrel Bisulfate [Plavix (*)] 75 mg PO DAILY 07/20/15 Levothyroxine [Synthroid 100 mcg 100 mcg PO DAILY 07/20/15 (*)] Lisinopril [Zestril 20 mg (*)] 40 mg PO DAILY 07/26/15 Metoclopramide [Reglan 5 mg (*)] 5 mg PO ACHS PRN 12/13/17 Ascorbic Acid [Vitamin C 500 mg 1,000 mg PO DAILY 07/25/18 (*)] Insulin NPH Human [humULIN N 100 5 units SC DAILY 07/25/18 UNITS/ML (*)] Insulin NPH Human [humULIN N 100 6 units SC DAILY@1730 07/25/18 UNITS/ML (*)] Pramipexole Di-HCl [Mirapex] 0.5 mg PO DAILY 07/25/18 Pramipexole Di-HCl [Mirapex] 1.5 mg PO DAILY@1730 07/25/18 Sertraline HCl [Zoloft 50mg (*)] 25 mg PO DAILY 07/25/18 Medical Decision Making - Diagnostics Imaging Results: Chest X-Ray 07/25/18 12:59 Impression: Perihilar bronchitis/RAD, with no focal infiltrate. Imaging: I viewed and interpreted images myself ED Course/Re-evaluation: This patient presents with chest pain and shortness of breath. Vital signs reveal low-grade fever. Meets SIRS criteria. Lung exam and chest x-ray are unremarkable. No infiltrate on CXR. Concern for pulmonary embolism, given cp/ SOB, jesus CXR and elevated D-dimer. CT pulmonary angiogram ordered. 1330: Serum lactate is elevated at 5.7, which places the pt in the septic shock category. However, it's not clear whether this patient has pneumonia or pulmonary embolism. There is no evidence of alternative infection. I will proceed with the sepsis protocol, blood pressure is 146/68 and heart rate 97. IVF given, bld cx's drawn and Levaquin IV given. 2pm: back from CT, sitting up and eating lunch. HR 96, BP elevated, pt walks to BR, feels ok. CTA reveals no evidence of PE or pneumonia. Results d/w pt, remains well- appearing. Abd soft, NT. UA 3-5 WBC without bacteria, urine cx sent. Query if elevated lactate secondary to alternative etiology (rather than sepsis). Pt has received IVF per protocol, repeat lactate 4.6. Will admit to PCU for close observation and further eval of cp. The hospitalist service was consulted for admission. This pt utilized 35 minutes of critical care time by me exclusive of unbundled procedures. Time spent in serial reassessments of pt, lab/imaging ordering/ review, discussions with pt and consultants. Differential Diagnosis: includes though not limited to pneumonia, PE, pulm edema, ACS, influenza, UTI, intraabd infection. - Data Points Laboratory Results: Laboratory Results 07/25/18 12:52 07/25/18 12:52 Microbiology Results: MICROBIOLOGY 07/25/18 13:10 Nasal, Sinus - Swab Respiratory Panel (PCR) - Final No Organism Detected By Pcr Medications Given: Ascorbic Acid (Vitamin C) 1,000 mg PO DAILY [facility] Stop: 01/22/19 08:59 Last Admin: 07/26/18 07:39 Dose: 1,000 mg Aspirin (Aspirin) 325 mg PO DAILY [facility] Stop: 01/22/19 08:59 Last Admin: 07/26/18 07:39 Dose: Not Given Clopidogrel Bisulfate (Plavix) 75 mg PO DAILY [facility] Stop: 01/22/19 08:59 Last Admin: 07/26/18 07:40 Dose: 75 mg Enoxaparin Sodium (Lovenox) 40 mg SC DAILY [facility] Stop: 01/22/19 08:59 Last Admin: 07/26/18 07:45 Dose: Not Given Levofloxacin/Dextrose (Levaquin 750 Mg (Premix)) 150 mls @ 100 mls/hr IV DAILY [facility] PRN Reason: Protocol Stop: 08/25/18 08:59 Last Admin: 07/26/18 07:40 Dose: 150 mls Insulin Human Lispro (Humalog Lispro) 0 unit SC TIDMEAL [facility] PRN Reason: Protocol Stop: 01/21/19 17:59 Last Admin: 07/26/18 07:40 Dose: 2 units Insulin Human NPH (Humulin N Syringe) 5 units SC DAILY [facility] Stop: 01/22/19 08:59 Last Admin: 07/26/18 07:58 Dose: 5 units Insulin Human NPH (Humulin N Syringe) 6 units SC DAILY@1730 [facility] Stop: 01/21/19 17:59 Last Admin: 07/25/18 18:12 Dose: 6 units Levothyroxine Sodium (Synthroid) 100 mcg PO DAILY06 [facility] Stop: 01/22/19 05:59 Last Admin: 07/26/18 06:26 Dose: 100 mcg Lisinopril (Zestril) 40 mg PO DAILY [facility] Stop: 01/22/19 08:59 Last Admin: 07/26/18 08:07 Dose: 40 mg Pramipexole Dihydrochloride (Mirapex) 0.5 mg PO DAILY [facility] Stop: 01/22/19 08:59 Last Admin: 07/26/18 08:06 Dose: 0.5 mg Pramipexole Dihydrochloride (Mirapex) 1.5 mg PO DAILY@1730 [facility] Stop: 01/21/19 17:59 Last Admin: 07/25/18 18:13 Dose: 1.5 mg Sertraline HCl (Zoloft) 25 mg PO DAILY [facility] Stop: 01/22/19 08:59 Last Admin: 07/26/18 08:05 Dose: 25 mg Discontinued Medications Levofloxacin/Dextrose (Levaquin 750 Mg (Premix)) 150 mls @ 100 mls/hr IV EDNOW ONE PRN Reason: Protocol Stop: 07/25/18 15:02 Last Admin: 07/25/18 14:24 Dose: 150 mls Sodium Chloride (Ns) 2,000 mls @ 4,000 mls/hr 30 ml/kg infuse over 30 min ( 2000 ml) IV EDNOW ONE PRN Reason: Protocol Stop: 07/25/18 14:02 Last Admin: 07/25/18 14:24 Dose: 2,000 mls Point of Care Test Results: Chemistry 07/25/18 13:05 POC Troponin I 0.00 ng/mL ng/mL (0.00-0.08) Departure - Departure Disposition: [facility] Inpatient Acute Clinical Impression: Chest pain Qualifiers: Chest pain type: other chest pain Qualified Code(s): R07.89 - Other chest pain Condition: Fair
[2018-07-25] MEDS ORDERED: NS 2,000 ML IV ONE (13:33)
[2018-07-25] MEDS ORDERED: IOPAMIDOL (ISOVUE 370) 75 ML BTL IV ONE (13:42)
--- NOTE | 2018-07-25 16:04 | CPEKG ---
Test Reason : OPEN Blood Pressure : / mmHG Vent. Rate : 113 BPM Atrial Rate : 113 BPM P-R Int : 157 ms QRS Dur : 103 ms QT Int : 330 ms P-R-T Axes : 039 -20 054 degrees QTc Int : 453 ms Sinus tachycardia artifact Confirmed by Albertina Mcwilliams ([id number]) on 07/25/2018 4:04:26 PM Referred By: PHYSICIAN ED Confirmed By:Albertina Mcwilliams
--- NOTE | 2018-07-25 16:05 | CPEKG ---
Test Reason : OPEN Blood Pressure : / mmHG Vent. Rate : 108 BPM Atrial Rate : 106 BPM P-R Int : 137 ms QRS Dur : 103 ms QT Int : 335 ms P-R-T Axes : 052 -23 046 degrees QTc Int : 449 ms Sinus tachycardia Probable left atrial enlargement Borderline left axis deviation Minimal ST depression, inferior leads Confirmed by Albertina Mcwilliams ([id number]) on 07/25/2018 4:04:40 PM Referred By: PHYSICIAN ED Confirmed By:Albertina Mcwilliams
[2018-07-25] MEDS ORDERED: PROMETHAZINE HCL 25 MG/ML INJ IVP PRN (16:12)
[2018-07-25] MEDS ORDERED: ONDANSETRON 4 MG/2 ML VIAL IVP PRN (16:12)
[2018-07-25] MEDS ORDERED: oxyCODONE IR 5 MG TAB PO PRN (16:12)
[2018-07-25] MEDS ORDERED: ACETAMINOPHEN 325 MG TAB PO PRN (16:12)
[2018-07-25] MEDS ORDERED: ONDANSETRON DISINTEGRATING 4 MG TAB PO PRN (16:12)
[2018-07-25] MEDS ORDERED: HYDROCODONE/APAP 5/325 TAB PO PRN (16:12)
[2018-07-25] MEDS ORDERED: D50W 25 GM/50 ML SYR IVP PRN (16:15)
[2018-07-25] MEDS ORDERED: NS 1,000 ML IV SCH (16:15)
[2018-07-25] MEDS ORDERED: hydrALAZINE 20 MG/ML VIAL IVP PRN (16:19)
--- NOTE | 2018-07-25 16:21 | PDGENHP ---
History and Physical - Chief Complaint chest pain/sob - History of Present Illness Patient is a 72 yo F with PMH that includes pancreatic cancer s/p whipple as well as CAD presenting with left chest/flank pain as well as sob. She notes the symptoms have been present for 2 days. She describes it as an ache and has felt sob and noted to be breathing fast per her daughter. There are no alleviating or exacerbating features that she is aware of but does note that currently the pain seems to be largely gone. She has had fever today while in the ER and has had some chills at home. She denies any abdominal pain, nausea, vomiting or diarrhea. She has not had any urinary sxs. She had been eating and drinking normally up until today and has not eaten much today due to these sxs. History Information - Allergies/Home Medication List Allergies/Adverse Reactions: Sulfa (Sulfonamide Antibiotics) Allergy (Severe, Verified 07/25/18 14:23) Hives oxycodone HCl [From Percocet] Allergy (Intermediate, Verified 07/25/18 14:23) Vomiting acetaminophen Allergy (Unknown, Unverified 07/25/18 14:23) Vomiting povidone-iodine Allergy (Unknown, Unverified 07/25/18 14:23) Hives soap Allergy (Unknown, Unverified 07/25/18 14:23) Hives oxycodone HCl Allergy (Unknown, Uncoded 07/25/18 14:23) Vomiting Home Medications: Clopidogrel Bisulfate [Plavix (*)] 75 mg PO DAILY 07/20/15 [Last Taken 07/25/18] Levothyroxine [Synthroid 100 mcg (*)] 100 mcg PO DAILY 07/20/15 [Last Taken ] Lisinopril [Zestril 20 mg (*)] 40 mg PO DAILY 07/26/15 [Last Taken 07/25/18] Metoclopramide [Reglan 5 mg (*)] 5 mg PO ACHS PRN 12/13/17 [Last Taken 12/13/17 12:00] Ascorbic Acid [Vitamin C 500 mg (*)] 1,000 mg PO DAILY 07/25/18 [Last Taken ] Insulin NPH Human [humULIN N 100 UNITS/ML (*)] 5 units SC DAILY 07/25/18 [Last Taken 07/25/18] Insulin NPH Human [humULIN N 100 UNITS/ML (*)] 6 units SC DAILY@1730 07/25/18 [ Last Taken 07/24/18] Pramipexole Di-HCl [Mirapex] 0.5 mg PO DAILY 07/25/18 [Last Taken 07/25/18] Pramipexole Di-HCl [Mirapex] 1.5 mg PO DAILY@1730 07/25/18 [Last Taken 07/24/18] Sertraline HCl [Zoloft 50mg (*)] 25 mg PO DAILY 07/25/18 [Last Taken 07/25/18] I have personally reviewed and updated: family history, medical history, social history, surgical history - Past Medical History asthma, coronary artery disease, cancer (pancreatic cancer dx 2018 sp Whipple and no other tx), diabetes type 2, GERD, hypertension, hyperlipidemia Additional medical history: hypothyroid. restless leg syndrome - Surgical History Reports: cancer surgery (whipple surgery), cholecystectomy, hysterectomy, coronary stent Additional surgical history: breast augmentation. bladder sling. KELVIN. TKA - Family History Positive for: non-pertinent - Social History Smoking Status: Never smoked Alcohol Use: Rarely Drug Use: None Additional social history: , accompanied by her daughter, independent Review of Systems Review of Systems: ROS: 10pt was reviewed & negative except for what was stated in HPI & below Physical Exam Physical Exam: Temp Pulse Resp BP Pulse Ox 37.1 C 96 16 181/90 H 96 07/25/18 13:29 07/25/18 16:00 07/25/18 16:00 07/25/18 16:00 07/25/18 16:00 Constitutional: no apparent distress, appears nourished Eyes: PERRL, anicteric sclera Ears, Nose, Mouth, Throat: moist mucous membranes, hearing normal Cardiovascular: regular rate and rhythym, no murmur, rub, or gallop, No edema Respiratory: no respiratory distress, no rales or rhonchi Gastrointestinal: normoactive bowel sounds, soft, non-tender abdomen Genitourinary: no bladder tenderness Skin: warm, normal color Musculoskeletal: no muscle tenderness Neurologic: AAOx3 Psychiatric: interacting appropriately, not anxious, not encephalopathic Lab Data & Imaging Review 07/25/18 12:52 07/25/18 12:52 WBC 13.76 10^3/uL (3.80-9.50) H 07/25/18 12:52 RBC 4.88 10^6/uL (4.18-5.33) 07/25/18 12:52 Hgb 13.8 g/dL (12.6-16.3) 07/25/18 12:52 Hct 42.5 % (38.0-47.0) 07/25/18 12:52 MCV 87.1 fL (81.5-99.8) 07/25/18 12:52 MCH 28.3 pg (27.9-34.1) 07/25/18 12:52 MCHC 32.5 g/dL (32.4-36.7) 07/25/18 12:52 RDW 14.4 % (11.5-15.2) 07/25/18 12:52 Plt Count 157 10^3/uL (150-400) 07/25/18 12:52 MPV 12.2 fL (8.7-11.7) H 07/25/18 12:52 Neut % (Auto) 91.7 % (39.3-74.2) H 07/25/18 12:52 Lymph % (Auto) 3.1 % (15.0-45.0) L 07/25/18 12:52 [place] % (Auto) 4.4 % (4.5-13.0) L 07/25/18 12:52 Eos % (Auto) 0.3 % (0.6-7.6) L 07/25/18 12:52 Baso % (Auto) 0.1 % (0.3-1.7) L 07/25/18 12:52 Nucleat RBC Rel Count 0.0 % (0.0-0.2) 07/25/18 12:52 Absolute Neuts (auto) 12.62 10^3/uL (1.70-6.50) H 07/25/18 12:52 Absolute Lymphs (auto) 0.43 10^3/uL (1.00-3.00) L 07/25/18 12:52 Absolute Monos (auto) 0.61 10^3/uL (0.30-0.80) 07/25/18 12:52 Absolute Eos (auto) 0.04 10^3/uL (0.03-0.40) 07/25/18 12:52 Absolute Basos (auto) 0.01 10^3/uL (0.02-0.10) L 07/25/18 12:52 Absolute Nucleated RBC 0.00 10^3/uL (0-0.01) 07/25/18 12:52 Immature Gran % 0.4 % (0.0-1.1) 07/25/18 12:52 Immature Gran # 0.06 10^3/uL (0.00-0.10) 07/25/18 12:52 RBC/WBC/PLT Morphology TNP 07/25/18 12:52 Platelet Estimate TNP 07/25/18 12:52 D-Dimer 1.51 ug/mLFEU (0.00-0.50) H 07/25/18 12:52 VBG Lactic Acid 2.7 mmol/L (0.7-2.1) H 07/25/18 15:35 Sodium 133 mEq/L (135-145) L 07/25/18 12:52 Potassium 4.1 mEq/L (3.5-5.2) 07/25/18 12:52 Chloride 102 mEq/L (97-110) 07/25/18 12:52 Carbon Dioxide 17 mEq/l (22-31) L 07/25/18 12:52 Anion Gap 14 mEq/L (6-14) 07/25/18 12:52 BUN 9 mg/dL (7-23) 07/25/18 12:52 Creatinine 0.6 mg/dL (0.6-1.0) 07/25/18 12:52 Estimated GFR > 60 07/25/18 12:52 Glucose 340 mg/dL (70-100) H 07/25/18 12:52 Calcium 8.8 mg/dL (8.5-10.4) 07/25/18 12:52 Total Bilirubin 0.5 mg/dL (0.1-1.4) 07/25/18 12:52 Conjugated Bilirubin 0.4 mg/dL (0.0-0.5) 07/25/18 12:52 Unconjugated Bilirubin 0.1 mg/dL (0.0-1.1) 07/25/18 12:52 AST 30 IU/L (14-46) 07/25/18 12:52 ALT 19 IU/L (9-52) 07/25/18 12:52 Alkaline Phosphatase 134 IU/L (38-126) H 07/25/18 12:52 POC Troponin I 0.00 ng/mL (0.00-0.08) 07/25/18 13:05 NT-Pro-B Natriuret Pep 581 pg/mL (0-125) H 07/25/18 12:52 Total Protein 6.7 g/dL (6.3-8.2) 07/25/18 12:52 Albumin 3.9 g/dL (3.5-5.0) 07/25/18 12:52 Lipase 11 IU/L (23-300) L 07/25/18 12:52 Urine Color YELLOW 07/25/18 13:30 Urine Appearance CLEAR 07/25/18 13:30 Urine pH 5.0 (5.0-7.5) 07/25/18 13:30 Ur Specific [place] 1.010 (1.002-1.030) 07/25/18 13:30 Urine Protein NEGATIVE (NEGATIVE) 07/25/18 13:30 Urine Ketones NEGATIVE (NEGATIVE) 07/25/18 13:30 Urine Blood NEGATIVE (NEGATIVE) 07/25/18 13:30 Urine Nitrate NEGATIVE (NEGATIVE) 07/25/18 13:30 Urine Bilirubin NEGATIVE (NEGATIVE) 07/25/18 13:30 Urine Urobilinogen NEGATIVE EU (0.2-1.0) 07/25/18 13:30 Ur Leukocyte Esterase NEGATIVE (NEGATIVE) 07/25/18 13:30 Urine RBC 1-3 /hpf (0-3) 07/25/18 13:30 Urine WBC 3-5 /hpf (0-3) H 07/25/18 13:30 Ur Epithelial Cells TRACE /lpf (NONE-1+) 07/25/18 13:30 Urine Mucus TRACE /lpf (NONE-1+) 07/25/18 13:30 Urine Glucose 3+ (NEGATIVE) H 07/25/18 13:30 Nasal Influenza A PCR NEGATIVE FOR FLU A (NEGATIVE) 07/25/18 13:10 Nasal Influenza B PCR NEGATIVE FOR FLU B (NEGATIVE) 07/25/18 13:10 Visualized and Interpreted Chest x-ray results: Yes Chest X-Ray results: no infiltrate Visualized and Interpreted imaging results: Yes Interpretation: CTA thorax: no PE, no pna, visualized portion of abdomen normal Visualized and Interpreted EKG results: Yes EKG additional interpertation: sinus tach Assessment & Plan Assessment: 72 yo F with hx of pancreatic cancer, CAD, DM2 presenting with sob/chest pain with lab evidence of sepsis/septic shock # chest pain: atypical chest pain and given 2 days of pain with negative troponin very unlikely to be ACS, heart score of 7 however with prior hx of CAD that presented atypically as well. Will monitor on tele, trend troponin and ecg overnight and request cardiology consult. # ? sepsis/septic shock: patient meeting criteria for sepsis with leukocytosis, tachycardia with lactate of 5.7 on arrival but no clear source of infection- chest xray negative, UA negative, only complaint being left sided chest pain with imaging of chest unremarkable including upper portion of abdomen. Started on levofloxacin for possible UTI though UA relatively benign (cultures pending) . Blood cultures pending. Could be non infectious SIRS and elevated lactate due to volume depletion in setting of hyperglycemia and underlying malignancy. Will check procalcitonin and get viral pcr. Lactate trending down s/p fluid. # DM with hyperglycemia: last a1c was 6.2, started on SSI in addition to home regimen, per daughter patient had eaten chocolate cake immediately prior to getting blood drawn but also could be driven by sepsis as above. # hyponatremia: pseudohyponatremia in setting of hyperglycemia # elevated alk phos: mild and with other LFTs wnl, unclear significance, will trend # pancreatic cancer: diagnosed in 2018 and s/p surgical resection with whipple but no subsequent therapy, no masses noted on CTA # HTN: uncontrolled in ER but in setting of anxiety and pain, will resume lisinopril, PRN hydralazine # observation status Patient new to my care. Old records reviewed and summarized as above. Care plan reviewed with ER doctor as above.
[2018-07-25] MEDS ORDERED: METOCLOPRAMIDE 5 MG TAB PO PRN (17:34)
[2018-07-25] MEDS: INSULIN NPH HUMAN 100 UNITS/ML SYR SC SCH (18:12)
[2018-07-25] MEDS: PRAMIPEXOLE 1 MG TAB PO SCH (18:13)
[2018-07-25] MEDS: INSULIN LISPRO 100 UNIT/ML SC SCH (18:21)
[2018-07-26] MEDS: LEVOTHYROXINE 100 MCG TAB PO SCH (06:26)
[2018-07-26] MEDS: ASPIRIN 325 MG TAB PO SCH (07:39)
[2018-07-26] MEDS: ASCORBIC ACID 500 MG TAB PO SCH (07:39)
[2018-07-26] MEDS: CLOPIDOGREL BISULFATE 75 MG TAB PO SCH (07:40)
[2018-07-26] MEDS: INSULIN LISPRO 100 UNIT/ML SC SCH ×3 (07:40→17:16)
[2018-07-26] MEDS: ENOXAPARIN 40 MG/0.4 ML SYR SC SCH (07:45)
[2018-07-26] MEDS: INSULIN NPH HUMAN 100 UNITS/ML SYR SC SCH ×2 (07:58→17:17)
[2018-07-26] MEDS: SERTRALINE HCL 50 MG TAB PO SCH (08:05)
[2018-07-26] MEDS: PRAMIPEXOLE 1 MG TAB PO SCH ×2 (08:06→17:15)
[2018-07-26] MEDS: LISINOPRIL 20 MG TAB PO SCH (08:07)
[2018-07-26 08:11] LABS: PLATELET COUNT 130 10^3/uL (150-400)
--- NOTE | 2018-07-26 10:15 | GCON ---
DATE OF CONSULTATION: 07/26/2018 REFERRING PHYSICIAN: Danielle Pendleton MD CHIEF COMPLAINT: We have been asked by Dr. Pendleton to evaluate the patient with a chief complaint of chest pain. HISTORY OF PRESENT ILLNESS: The patient is a 72-year-old female with a history of pancreatic cancer, status post Whipple procedure and coronary artery disease, status post percutaneous coronary interve ntion who was admitted on 07/25/2018, with symptoms of dyspnea and chest pain. The patient was in he r usual state of health until approximately 1 month prior to admission when she began to note symptom s of dyspnea on exertion. Her symptoms of dyspnea were not associated with chest pain or orthopnea a nd PND. Her symptoms have been relatively stable over this time frame. Approximately 2 days prior t o admission, patient began to experience symptoms of chest pain. The chest pain is described as an a kenia over the left lateral chest wall. The chest pain is not worse with position or respiration. The chest pain is associated with nausea, but not diaphoresis. When her symptoms did not jese, she pre sented to the emergency department for further evaluation. She had an EKG performed demonstrating no acute ST or T-wave changes. Her initial troponin was withi n normal limits. The patient also underwent CT pulmonary angiogram to exclude pulmonary embolus. Th e CT pulmonary angiogram was unremarkable. We have been consulted to help in the further management of this patient. Patient does have a previous history of coronary artery disease and is status post stenting of her le ft anterior descending coronary artery in 2013. She underwent cardiac catheterization in 2014, demon strated no significant obstructive disease and patent stent. She also underwent cardiac catheterizat ion April of 2017, demonstrated patent LAD stent with no significant obstructive disease. Patient has been managed medically since this time. She has been unable to tolerate beta-padmini, secondary to adverse drug reaction. PAST MEDICAL HISTORY: 1. Coronary artery disease. 2. Pancreatic cancer, status post Whipple procedure. 3. Degenerative joint disease, status post total hip arthroplasty x3 and total knee arthroplasty x1. 4. Gastroesophageal reflux disease. 5. Hypertension. 6. Hyperlipidemia. 7. Diabetes. 8. Hypothyroidism. 9. Restless leg syndrome. 10. Status post cholecystectomy. 11. Status post hysterectomy. 12. Status post breast augmentation. MEDICATIONS: Please see medicine reconciliation form. ALLERGIES: Beta-blockers, sulfa, and oxycodone. SOCIAL HISTORY: Patient is living with her daughter. She never smoked. She denies problems with al cohol. FAMILY HISTORY: Notable for early onset of coronary artery disease. REVIEW OF SYSTEMS: 10-point review of systems is negative, except as noted in HPI. PHYSICAL EXAMINATION: GENERAL: The patient is resting in bed. She does not appear to be in acute d istress. VITAL SIGNS: Temperature is afebrile. Pulse is 67, blood pressure 115/70, SaO2 is 97% on room air. HEENT: Normocephalic, atraumatic. Extraocular muscles intact. NECK: No JVD. No bruits . LUNGS: Coarse bronchial breath sounds bilaterally. No crackles auscultated. CARDIOVASCULAR: Re gular rate and rhythm. S1, S2. Grade 2/6 holosystolic murmur is noted at the left sternal border. ABDOMEN: Soft, nontender. Normoactive bowel sounds. No hepatosplenomegaly noted. EXTREMITIES: Tr williams edema bilaterally. SKIN: No evidence of rashes. NEURO: Patient is awake, alert, and oriented x3. LABORATORY/IMAGING: White blood cell count 6.51, hemoglobin 12.9, hematocrit is 39.6, platelet count 130. D-dimer is 1.51. Sodium 137, potassium 3.7, chloride 109, carbon dioxide 19, BUN 8, creatinin e 0.5. Troponin within normal limits x2. EKG demonstrates sinus rhythm with no acute ST or T-wave changes. ASSESSMENT/PLAN: The patient is a 72-year-old female with: 1. Chest pain. Patient presents with chest pain described as an ache over her left lateral chest wa ll. The chest pain is not positional and it is not respirophasic. The chest pain is not like her pr evious anginal-type symptoms. Her EKG demonstrates no acute ST or T-wave changes. Her biomarkers ar e within normal limits x2. Patient's last cardiovascular evaluation was in April of 2017. I think it would be reasonable to obtain a pharmacologic stress test for risk stratification to further eval uate her condition. 2. Dyspnea. Patient reports a 1 month history of dyspnea. The dyspnea is not associated with sympt oms of orthopnea and PND. CT pulmonary angiogram demonstrated no evidence of pulmonary emboli and no acute pulmonary disease. On physical exam, she has a systolic murmur consistent with mitral regurgi tation. We will plan on obtaining an echocardiogram to further evaluate her condition. 3. Coronary artery disease. Patient has known coronary artery disease and is status post percutaneo us coronary intervention of her left anterior descending coronary artery in 2013. She is on appropri ate secondary prevention with aspirin, Plavix, and lisinopril. She is not on beta padmini, secondary to adverse drug reaction. Will plan on obtaining a fasting lipid profile to see if patient would be nefit from statin therapy. /[id number]/MODL
--- NOTE | 2018-07-26 11:33 | ECHO ---
[email or web address] [address] [address] Main: [phone] Fax: Transthoracic Echocardiogram Name: FERNANDO MACK MR#: [id number] Study Date: 07/26/2018 Study Time: 09:06 AM Date of : 1945 Age: 72 year(s) Height: 170.2 cm (67 in.) Weight: 70.76 kg (156 lb.) BSA: 1.82 m2 Gender: Female Examination: Echo Indication: Chest pain/SOB, hx CAD Image Quality: Contrast: Requested by: Brandt Duron BP: 115 mmHg/70 mmHg Heart Rate: Rhythm: Indication: Chest pain/SOB, hx CAD Procedure Staff Certified Legal Secretary Specialist: Bouchra Sosa DOMI Reading Physician: Brandt Duron MD Requesting Provider: Conclusions: Normal size left ventricle. Normal global systolic LV function. The ejection fraction is estimated to be 65-70 %. The left atrium is mildly dilated. The aortic valve is tri-leaflet. Moderate aortic cusp calcification is present. There is no aortic valve regurgitation. No aortic valve stenosis is present. Trivial tricuspid valve regurgitation. No pericardial effusion. The pulmonary artery pressure could not be adequately estimated No old studies for comparison. Measurements: Chambers Valvular Assessment AV/MV Valvular Assessment TV/PV Normal Normal Normal Name Value Range Name Value Range Name Value Range IVSd (2D): 0.9 cm (0.6 cm-1.1 AV Vmax: 1.90 m/s (1 m/s-1.7 TR Vmax: 2.06 mm/s ( - ) cm) m/s) TR PGmax: 17 mmHg ( - ) LVDd (2D): 5.1 cm (3.9 cm-5.3 AV meanP mmHg ( - ) syst. PAP: 22 mmHg ( - ) cm) MV E Vmax: 0.65 m/s ( - ) LVDs (2D): 3.2 cm (2.1 cm-4 MV A Vmax: 0.80 m/s ( - ) cm) MV E/A: 0.81 ( - ) LVPWd (2D): 1.0 cm ( - ) LVEF (BP): 67 % (>=55 %) EF Range: 65-70 % Continued Measurements: Chambers Valvular Assessment AV/MV Valvular Assessment TV/PV Patient: FERNANDO MACK Study Date: 07/26/2018 Page 1 of 2 09:06 AM Name Value Name Value Name Value LADs: 3.8 cm MV E' Septal: 0.06 m/s CVP (est.): 5 mmHg LADs Lon.9 cm MV E/E' Septal: 11.50 LA Area: 17.1 cm2 MV E/E' Lateral: 15.90 LA Volume: 45 ml LA Volume Index: 24.7 ml/m2 Additional Vessels Name Value Ao Ascendin.3 cm Findings: Left Ventricle: Normal size left ventricle. No LV hypertrophy. Normal global systolic LV function. The ejection fraction is estimated to be 65-70 %. No regional wall motion abnormality. Diastolic dysfunction is indeterminate.. Right Ventricle: Normal size right ventricle. Left Atrium: The left atrium is mildly dilated. Right Atrium: The right atrium is normal in size. Mitral Valve: Mild mitral annular calcification. Aortic Valve: The aortic valve is tri-leaflet. Moderate aortic cusp calcification is present. There is no aortic valve regurgitation. No aortic valve stenosis is present. Tricuspid Valve: The tricuspid valve is normal in appearance and function. Trivial tricuspid valve regurgitation. Pulmonic Valve: The pulmonic valve is normal in appearance and function. Aorta: The aorta is normal. Pericardium: No pericardial effusion. (No Signature Object) Patient: FERNANDO MACK Study Date: 07/26/2018 Page 2 of 2 09:06 AM [id number]
--- NOTE | 2018-07-26 15:05 | ASMTCMCOM ---
CM Note CM Note Notes: 07/26/2018 Case Management Note Discussed pt during rounds this morning. Pt admitted for chest pain. ECHO planned. Met w/pt and her daughter Deepika Abreu [phone] and son in law. Pt lives with daughter. Discussed discharge needs. Agreeable to Home Care. Pt thinks [facility] was used after her discharge a year ago for treatment of pancreatic cancer. Faxed referral. 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 Case Management to follow. Date Signed: 07/26/2018 03:04 PM Electronically Signed By:Marleni Villeda RN
--- NOTE | 2018-07-26 17:25 | HOSPPROG ---
Hospitalist Progress Note Assessment/Plan: 72 yo F with hx of pancreatic cancer, CAD, DM2 presenting with sob/chest pain with lab evidence of sepsis/septic shock chest pain:- resolved at this point. I discussed the case with Cardiology who recommends nuclear stress test. I reviewed the ECG which shows no acute St/T wave changes. Troponins negative. Echo with lvef of 65% and otherwise normal. -stress test in am -cont to monitor on tele sepsis-patient was originally meeting criteria. but now leukocytosis resolved. CXR clear, but she did have an elevate procalcitonin. was recently treated for a UTI, and urine culture toda with skin elsi. Started on levaquin which she has already had two days of now. -monitor cultures -cont levaquin DM with hyperglycemia: last a1c was 6.2, started on SSI in addition to home regimen, per daughter patient had eaten chocolate cake immediately prior to getting blood drawn but also could be driven by sepsis as above. hyponatremia: pseudohyponatremia in setting of hyperglycemia, resolved today elevated alk phos: mild and with other LFTs wnl, unclear significance, will trend pancreatic cancer: diagnosed in 2018 and s/p surgical resection with whipple but no subsequent therapy, no masses noted on CTA HTN: uncontrolled in ER but in setting of anxiety and pain, will resume lisinopril, PRN hydralazine Patient new to my care. Old records reviewed and summarized as above. Care plan reviewed with ER doctor as above. PPX- SCDs, lovenox Fluids-none Lytes- WNL Nutrition- NPO at [facility]- Full Dispo- inpatient for chest pain, sepsis Subjective: patient no longer with chest pain. No cough, does have "head cold" with dry sinuses and congested nose. Objective: Vital Signs Temp Pulse Resp BP Pulse Ox 36.8 C 72 18 139/64 H 97 07/26/18 15:49 07/26/18 15:49 07/26/18 15:49 07/26/18 15:49 07/26/18 15:49 Laboratory Results 07/26/18 07:52 07/26/18 07:52 07/25/18 07/26/18 07/27/18 05:59 05:59 05:59 Intake Total 2900 350 Output Total 3800 1400 Balance -900 -1050 - Physical Exam Constitutional: no apparent distress, appears nourished, not in pain Eyes: PERRL, anicteric sclera, EOMI Ears, Nose, Mouth, Throat: moist mucous membranes, hearing normal, ears appear normal, no oral mucosal ulcers Cardiovascular: regular rate and rhythym, no murmur, rub, or gallop Respiratory: no respiratory distress, no rales or rhonchi, clear to auscultation Gastrointestinal: normoactive bowel sounds, soft, non-tender abdomen, no palpable masses Genitourinary: no bladder fullness, no bladder tenderness, no renal bruits Skin: no rashes or abrasions, no fluctuance, no induration Musculoskeletal: full muscle strength, no muscle tenderness, normal joint ROM Neurologic: AAOx3, sensation intact bilaterally Psychiatric: interacting appropriately, not anxious, not encephalopathic, thought process linear Lymph, Heme, Immunologic: no cervical LAD, no supraclavicular LAD ICD10 Worksheet Patient Problems: Problems Problem Status Onset Chest pain Acute Nausea & vomiting Acute UTI (urinary tract infection) Acute
--- NOTE | 2018-07-26 17:47 | CPEKG ---
Test Reason : OPEN Blood Pressure : / mmHG Vent. Rate : 069 BPM Atrial Rate : 068 BPM P-R Int : 132 ms QRS Dur : 100 ms QT Int : 405 ms P-R-T Axes : 064 047 070 degrees QTc Int : 434 ms Sinus rhythm Nonspecific T abnrm, anterolateral leads Compared with 07/25/2018 T abnl now present Confirmed by Mey Carmen ([id number]) on 07/26/2018 5:47:29 PM Referred By: Danielle Pendleton Confirmed By:Mey Carmen
[2018-07-27 04:58] LABS: PLATELET COUNT 132 10^3/uL (150-400)
[2018-07-27] MEDS: LEVOTHYROXINE 100 MCG TAB PO SCH (07:30)
--- NOTE | 2018-07-27 08:17 | PDMN ---
Medical Necessity Medical necessity: [facility] M160 Sepsis: 72 yo presents w/ CP, initially OBS for workup, Further assessment reveals sepsis w/ no clear source. Pt requiring additional MN for ongoing tx of sepsis and for cardio consult who recs Nuc stress test in AM. Cont monitor on tele, cont IV antibx, monitor cultures. Hx pancreatic ca s/p whipple 2018, asthma, CAD, DMII HTN, HLD, GERD, coronary stent , KELVIN, TKA. Change to IP status 07/26/18@1999 per MD order.
[2018-07-27] MEDS ORDERED: REGADENOSON 0.4 MG/5 ML SYR IVP ONE (09:24)
--- NOTE | 2018-07-27 10:32 | CPR ---
PROCEDURE: Lexiscan injection and Lexiscan MPI study. SUPERVISING WIND ENERGY ENGINEER: Dr. Brandt Hernandez. INDICATION FOR PROCEDURE: Known history of CAD and episodes of chest pressure. PRE: After obtaining informed consent and ensuring patient's n.p.o. status of caffeine for greater t valero 12 hours, patient had electrocardiogram done. Initial EKG showed sinus rhythm with no significan t ST or T-wave abnormalities. Reports no chest pain, pressure, or symptoms suggesting ischemia. Ini tial blood pressure of 140/80, saturation of 96%. INJECTION: Patient was given Lexiscan slow IV push followed by nuclear isotope. Within 1 minute, sterling hernandez's heart rate did jump up to 86 beats per minute, but no significant EKG changes were noted. Sterling hernandez did report some mild shortness of breath, mild lump in her throat, and some abdominal discomfor t. Within 2 minutes of injection, patient was given caffeinated beverage and, soon after, all sympto ms subsided. Besides elevated heart rate, EKG remained mostly unchanged. Within 5 minutes post inje ction, patient reporting all symptoms subsided. No significant EKG changes. Final blood pressure of 142/72, saturation 97%. IMPRESSION: 72-year-old female with known history of coronary artery disease undergoing nuclear stre ss test for evaluation of cardiac ischemia. Did report some mild shortness of breath, abdominal disc omfort, and a lump in her throat post injection which resolved with caffeine. No significant EKG cheryl nges with injection. No arrhythmias. Vital signs are stable. Currently, she is asymptomatic and maricarmen will finish poststress imaging in Nuclear Medicine at this time. /[id number]/MODL
[2018-07-27] MEDS: INSULIN LISPRO 100 UNIT/ML SC SCH ×2 (10:41→12:46)
[2018-07-27 11:49] VITALS: BP 159/87
--- NOTE | 2018-07-27 12:24 | PDIAF ---
- Diagnosis Code Status: Full Code - Medication Management Discharge Medications: electronically signed and located in the Home Medication List. - Orders Services needed: Home Care, Registered Nurse, Physical Therapy Home Care Face to Face: I certify that this patient was under my care and that I had the required [id number]-[id number]-eran encounter meeting the encounter requirements on the discharge day. My findings support the fact that the patient is homebound as defined in Home Care Face to Face Continued: CMS Chapter 7 Medicare Benefits Manual 30.1.1 , The condition of the patient is such that there exists a normal inability to leave home and consequently, leaving home would require a considerable and taxing effort. Isolation Type: None Diet Recommendation: no restrictions on diet, cardiac -low fat low salt Diet Texture: Regular Texture Diet Additional Instructions: 1. Start lovastatin 10 mg daily. Follow up labs in 6 months 2. Follow up with Dr. Suh in 2 weeks. - Follow Up Care Current Providers and Referrals: Sue Robledo MD [Primary Care Provider] - As per Instructions
--- NOTE | 2018-07-27 12:55 | SOAPPROG ---
MARCIANO Progress Note Assessment/Plan: 1. Chest pain - Pt presented with symptoms of chest pain. The chest pain was not like her previous angina which was more centralized. EKG demonstrated no acute ST or T-wave changes. Biomarkers were within normal limits. She was scheduled for stress test for risk stratification. The stress test demonstrated a fixed anteroseptal perfusion defect suggestive of RV insertion. There is no evidence of ischemia. Her left ventricular systolic function was 45 %. Echocardiogram demonstrated normal left ventricular systolic function. Suspect gating artifact. Patient denies further episodes of chest pain. No further workup at this time. 2. Coronary artery disease - Patient has known coronary artery disease and is status post stenting of her left anterior descending coronary artery. Angiogram in 04/18 demonstrated patent LAD stent. Stress testing in 07/21 demonstrated no evidence of ischemia. Will continue secondary prevention with aspirin, lisinopril, and lovastatin. Consider addition of beta-padmini therapy. 3. Hyperlipidemia - Patient has a history of hyperlipidemia. Her statin was discontinued in 02/17. Her LDL cholesterol increased to 88. Patient will resume lovastatin 10 mg daily. FLP and LFTs in 6 months. Subjective: No further episodes of chest pain. No significant arrhythmias on telemetry monitoring. No orthopnea or PND. Objective: Vital Signs Temp Pulse Resp BP Pulse Ox 37.1 C 66 18 159/87 H 98 07/27/18 11:48 07/27/18 11:48 07/27/18 11:48 07/27/18 11:48 07/27/18 11:48 Laboratory Results 07/27/18 04:20 07/27/18 04:20 07/26/18 07/27/18 07/28/18 05:59 05:59 05:59 Output Total 350 Balance -350 Physical Exam - Physical Exam General Appearance: alert, no apparent distress Respiratory: lungs clear Cardiac/Chest: regular rate, rhythm Extremities: pedal edema Neuro/Psych: alert, oriented x 3 ICD10 Worksheet Patient Problems: Problems Problem Status Onset Chest pain Acute Nausea & vomiting Acute UTI (urinary tract infection) Acute
[2018-07-27] MEDS: ASCORBIC ACID 500 MG TAB PO SCH (13:01)
[2018-07-27] MEDS: SERTRALINE HCL 50 MG TAB PO SCH (13:02)
[2018-07-27] MEDS: PRAMIPEXOLE 1 MG TAB PO SCH (13:03)
[2018-07-27] MEDS: INSULIN NPH HUMAN 100 UNITS/ML SYR SC SCH (13:04)
[2018-07-27] MEDS: CLOPIDOGREL BISULFATE 75 MG TAB PO SCH (13:04)
[2018-07-27] MEDS: LISINOPRIL 20 MG TAB PO SCH (13:04)
[2018-07-27] MEDS: ENOXAPARIN 40 MG/0.4 ML SYR SC SCH (13:04)
--- NOTE | 2018-07-27 14:24 | ASMTLACE ---
LACE Length of stay for Answers: Less than 1 day current admission Acuity / Level of Answers: No Care: Did the patient have an inpatient admission? Comorbidities - select Answers: Any tumor (including all that apply lymphoma or leukemia) Coronary Artery Disease Diabetes (uncontrolled or controlled) Other Notes: HTN; Hypothyroid; HLD # of Emergency department Answers: 1-2 visits in the last 6 months Score: 7 Date Signed: 07/27/2018 02:23 PM Electronically Signed By:Marleni Villeda RN
--- NOTE | 2018-07-27 14:30 | ASDISCHSUM ---
Discharge Information Plan Status:Home with Home Health Medically Cleared to Leave:07/26/2018 Discharge Date:07/27/2018 02:10 PM D/C Disposition:Home Health Service [facility] D/C Disposition:Home, Routine, Self-Care Projected Discharge Date:07/27/2018 11:00 AM Transportation at D/C:Family Discharge Delay Reason: Follow-Up Date:07/27/2018 11:00 AM Discharge Slot: Final Diagnosis: Placement Information Referral Type:*Home Health Care Services Referral ID:[id number] Provider Name:[facility] ([facility]) [address] [address] 2: City:[place] Selection Factors: State:[place] Patient Contact Information Contact Name:DAMON Relationship:Daughter Address: City: [facility] Phone: [facility]/Zip Code: Email: Financial Information Financial Class:Medicare Primary Plan Desc:MEDICARE INPATIENT Primary Plan Number:[id number] Secondary Plan Desc:AARP/MDR SUPPLEMENT Secondary Plan Number:[id number] Assessment Information LACE LACE Length of stay for Answers: Less than 1 day current admission Acuity / Level of Answers: No Care: Did the patient have an inpatient admission? Comorbidities - select Answers: Any tumor (including all that apply lymphoma or leukemia) Coronary Artery Disease Diabetes (uncontrolled or controlled) Other Notes: HTN; Hypothyroid; HLD # of Emergency department Answers: 1-2 visits in the last 6 months Score: 7 Date Signed: 07/27/2018 02:23 PM Electronically Signed By:Marleni Villeda RN [facility] CM Progress Note CM Note CM Note Notes: 07/26/2018 Case Management Note Discussed pt during rounds this morning. Pt admitted for chest pain. ECHO planned. Met w/pt and her daughter Deepika Abreu [phone] and son in law. Pt lives with daughter. Discussed discharge needs. Agreeable to Home Care. Pt thinks [facility] was used after her discharge a year ago for treatment of pancreatic cancer. Faxed referral. 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 Case Management to follow. Date Signed: 07/26/2018 03:04 PM Electronically Signed By:Marleni Villeda RN Case Management Discharge Plan Note Case Management Discharge Discharge Order Complete? Answers: Yes Patient to Obtain Answers: via Family Medications Transportation Arranged Answers: Family/Friends Faxed Final Orders Answers: Yes Notes: [facility] Agency/Facility Transfer Answers: Yes Notes: [facility] Report Printed & Faxed to Receiving Agency Discharge Comments Notes: 07/27/2018 Case Management Note Pt discharged home with daughter. Faxed final orders to [facility] for RN and PT. Date Signed: 07/27/2018 02:28 PM Electronically Signed By:Marleni Villeda RN Intervention Information Intervention Type:*Incorrect Registration Date of Service:07/26/2018 09:22 AM Patient Type:Inpatient Staff Member:Wood, Jocelyn Hours: Discipline: Severity: Comment: Intervention Type:*FLORES-Signed Date of Service:07/26/2018 11:55 AM Patient Type:Observation Staff Member:Katie Rodriguez Hours: Discipline: Severity: Comment:
[2018-07-27] MEDS: ASPIRIN 325 MG TAB PO SCH (14:46)
--- NOTE | 2018-07-27 17:24 | PDDCSUM ---
Discharge Summary Discharge Summary: The patient is a 72-year-old female with past medical history of coronary artery disease status post stenting of her left anterior descending artery. She presented with chest pain. She also initially met sepsis criteria which was thought to be due to urinary tract infection although no obvious source was never elucidated. She was treated with level floxacillin for this. She underwent an echocardiogram which showed normal ejection fraction and no areas of hypokinesis. She underwent a Lexiscan stress test which showed no areas of inducible ischemia. Cardiology was consulted who only recommended the patient be restarted on a statin for prevention. She was discharged home in good condition to follow up with her primary care provider Discharge diagnosis Chest pain Coronary artery disease Urinary tract infection Discharge medication Levofloxacin 750 for 2 days Lovastatin 10 mg daily indefinitely I spent over 35 5 min on discharge planning including arranging follow-up prescribing medications and going over the discharge plan with the patient
== END 2018-07-27 14:10 | disposition home or self-care (01) | DRG 872 ==
LOC: INTOOBSV 15:13 → F2W 16:28 → OBSVTOIN 07-26 20:00
PROVIDERS: ADMIT Internal Medicine; ATTEND Internal Medicine
DX: A41.9 Sepsis, unspecified organism (principal); N39.0 Urinary tract infection, site not specified; R07.9 Chest pain, unspecified; I25.10 Atherosclerotic heart disease of native coronary artery without angina pectoris; E87.1 Hypo-osmolality and hyponatremia; E11.65 Type 2 diabetes mellitus with hyperglycemia; E03.9 Hypothyroidism, unspecified; E78.5 Hyperlipidemia, unspecified; G25.81 Restless legs syndrome; K21.9 Gastro-esophageal reflux disease without esophagitis; I10 Essential (primary) hypertension; Z85.07 Personal history of malignant neoplasm of pancreas; Z95.5 Presence of coronary angioplasty implant and graft; Z96.643 Presence of artificial hip joint, bilateral; Z96.659 Presence of unspecified artificial knee joint
CPT/HCPCS: 84484-ER; 96374; 97116-GP; 97161-GP; 97165-GO; A9500; G0378; J1650; J1815; J1956; J2785; Q9967

== ENCOUNTER → 2018-09-17 | Outpatient (CLI) | payer OTHER, MEDICARE ==
[~2018-09-17] MED LIST: IOPAMIDOL (ISOVUE-300) 100 ML BTL ONE
== END ==
LOC: FIMAGING 11:47
PROVIDERS: ATTEND Internal Medicine
DX: C25.9 Malignant neoplasm of pancreas, unspecified (principal); R59.0 Localized enlarged lymph nodes; R91.1 Solitary pulmonary nodule; I81 Portal vein thrombosis
CPT/HCPCS: 74177; Q9967; 86301-90

== ENCOUNTER 2018-10-24 09:44 | Day surgery (SDC) | payer OTHER, MEDICARE ==
[2018-10-24] MEDS ORDERED: fentaNYL 100 MCG/2 ML INJ IVP PRN ×2 (10:05→14:05)
[2018-10-24] MEDS ORDERED: NALOXONE HCL 0.4 MG/ML INJ IVP PRN ×2 (10:05→14:05)
[2018-10-24] MEDS ORDERED: MIDAZOLAM 2 MG/2 ML VIAL IVP PRN (10:05)
[2018-10-24] MEDS ORDERED: MEPERIDINE 25 MG/ML SYR IVP PRN (10:05)
[2018-10-24] MEDS ORDERED: FLUMAZENIL 0.5 MG/5 ML MDV IVP PRN (10:05)
[2018-10-24] MEDS ORDERED: PROPOFOL/EMULSION 500 MG/50 ML BOTTLE IV ONE (10:58)
--- NOTE | 2018-10-24 10:59 | PDANEPAE ---
ANE History of Present Illness h/o pancreatic cancer s/p whipple ANE Past Medical History - Cardiovascular History Hx Hypertension: Yes Hx Arrhythmias: No Hx Chest Pain: No Hx Coronary Artery / Peripheral Vascular Disease: Yes Hx CHF / Valvular Disease: No Hx Palpitations: No Cardiovascular History Comment: +CAD s/p stent to LAD, recent hospitalization in Jul 2018 for CP with negative workup - Pulmonary History Hx COPD: No Hx Asthma/Reactive Airway Disease: Yes Hx Recent Upper Respiratory Infection: Yes Hx Oxygen in Use at Home: Yes O2 in Use at Home (L/minute): 2 Hx Sleep Apnea: Yes Sleep Apnea Screening Result - Last Documented: Positive Pulmonary History Comment: asthma as a child; getting over a cold now;. 2L O2 at night for sleep instead of CPAP; - Neurologic History Hx Cerebrovascular Accident: No Hx Seizures: No Hx Dementia: No Neurologic History Comment: migraines when younger - Endocrine History Hx Diabetes: Yes Hypothyroid: Yes Hyperthyroid: No Obesity: no Endocrine History Comment: Type 1 s/p whipple;. 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 recurrent UTI; - Liver History Hx Hepatic Disorders: Yes Hepatic History Comment: fatty liver; potential mets to liver; - Neurological & Psychiatric Hx Hx Neurological and Psychiatric Disorders: No - Cancer History Hx Cancer: Yes Cancer History Comment: pancreatic with mets to liver; - Congenital Disorder History Hx Congenital Disorders: No - GI History GERD: no Hx Gastrointestinal Disorders: No Gastrointestinal History Comment: stomach ulcers; esophageal spasms with dilation; diverticulitis; recurrent constipation and diarrhea; - Chronic Pain History Chronic Pain: Yes (abdominal 12/10) - Surgical History Prior Surgeries: partial thyroidectomy;. hip replacement x3;. R knee replacement;. hao; hysterectomy total;. breast augmentation w/ restructuring ;. Whipple;. Cardiac stent; angioplastys;. colonoscopy;. 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 cataract sx B; ANE Review of Systems Review of systems is: negative Review of Systems: - Exercise capacity Exercise capacity: >=4 METS METS (RN): 1 METS ANE Patient History - Allergies Allergies/Adverse Reactions: Sulfa (Sulfonamide Antibiotics) Allergy (Severe, Verified 10/24/18 10:34) Hives povidone-iodine Allergy (Unknown, Verified 10/24/18 10:34) Hives - Home Medications Home medications: home medication list seen and reviewed Home Medications: Levothyroxine [Synthroid 100 mcg (*)] 100 mcg PO DAILY 07/20/15 [Last Taken 08:00] Lisinopril [Zestril 20 mg (*)] 40 mg PO DAILY 07/26/15 [Last Taken 10/24/18 08: 00] Metoclopramide [Reglan 5 mg (*)] 5 mg PO ACHS PRN 12/13/17 [Last Taken 10/23/18 17:30] Insulin NPH Human [humULIN N 100 UNITS/ML (*)] 5 units SC DAILY 07/25/18 [Last Taken 10/24/18 08:00] Insulin NPH Human [humULIN N 100 UNITS/ML (*)] 6 units SC DAILY@1730 07/25/18 [ Last Taken 10/23/18 17:30] Pramipexole Di-HCl [Mirapex] 0.5 mg PO DAILY 07/25/18 [Last Taken 10/24/18 08:00 ] Pramipexole Di-HCl [Mirapex] 1.5 mg PO DAILY@1730 07/25/18 [Last Taken 10/23/18 17:30] Aspirin [Aspirin 81mg (*)] 81 mg PO MWF 10/23/18 [Last Taken Unknown] Charcoal, Activated PO BID 10/23/18 [Last Taken 10/23/18] DEXAMETHASONE 2 mg PO BID 10/23/18 [Last Taken 10/24/18 08:00] Simethicone PO BID 10/23/18 [Last Taken 10/24/18 08:00] Zofran 8 mg PO BID PRN 10/23/18 [Last Taken 10/24/18 10:00] - NPO status NPO Status: no food or drink >8 hours - Anes Hx Anes Hx: no prior problems - Smoking Hx Smoking Status: Never smoked - Family Anes Hx Family Hx Anesthesia Complications: denies ANE Labs/Vital Signs - Vital Signs Vital Signs: reviewed preoperatively; see RN documention for details Blood Pressure: 134/63 Heart Rate: 76 Respiratory Rate: 14 O2 Sat (%): 100 Height: 167.64 cm Weight: 68.946 kg ANE Physical Exam - Airway Neck exam: FROM Mallampati Score: Class 1 Mouth exam: normal dental/mouth exam - Pulmonary Pulmonary: no respiratory distress - Cardiovascular Cardiovascular: regular rate and rhythym - ASA Status ASA Status: IV ANE Anesthesia Plan Anesthesia Plan: GA with mask
[2018-10-24] MEDS ORDERED: MIDAZOLAM 2 MG/2 ML VIAL IVP ONE ×2 (11:15→12:10)
[2018-10-24] MEDS ORDERED: fentaNYL 100 MCG/2 ML INJ ONE (11:18)
[2018-10-24] MEDS ORDERED: MIDAZOLAM 2 MG/2 ML VIAL ONE (11:18)
[2018-10-24] MEDS ORDERED: LIDOCAINE 1% 300 MG/30 ML SDV ONE ×2 (11:27→12:57)
[2018-10-24] MEDS ORDERED: BUPIVACAINE 0.25% 30 ML SDV ONE (12:58)
[2018-10-24] MEDS ORDERED: IOPAMIDOL (ISOVUE-300) 100 ML BTL ONE (13:10)
[2018-10-24] MEDS ORDERED: ETHYL ALCOHOL 98% 5 ML AMP MISC ONE (13:15)
[2018-10-24] MEDS ORDERED: ONDANSETRON 4 MG/2 ML VIAL IVP PRN ×2 (13:26→14:05)
[2018-10-24] MEDS ORDERED: ACETAMINOPHEN 325 MG TAB PO PRN (13:26)
--- NOTE | 2018-10-24 13:29 | PDGENHP ---
History & Physical Chief Complaint: pancreatic cancer, metastatic History of Present Illness: pain in the stomach. "feels like I'm chewing pine cones." some back pain. Pertinent Past, Social, Family History: n/a Relevant Physical Exam: usual pain. in no acute distress. Cardiorespiratory Assessment: rrr,Cta
--- NOTE | 2018-10-24 13:30 | PDRADPN ---
Radiology Procedure Note Date of Procedure: 10/24/18 Radiologist: Yue Armstrong Anesthesia: IV Sedation Pre-op Diagnosis: metastatic pancreatic CA Post-op Diagnosis: same Indication: stomach and back pain Procedure: CT guided celiac block Finding(s): patient reports no pain after block Inf/Abcess present in the surg proc area at time of surgery?: No
[2018-10-24] MEDS ORDERED: PHENYLEPHRINE 10 MG/ML SDV ONE (14:04)
[2018-10-24] MEDS ORDERED: SODIUM CL 0.9% 20 ML VIAL ONE (14:04)
[2018-10-24] MEDS ORDERED: ALBUTEROL 3 ML DEYVIAL IH PRN (14:05)
--- NOTE | 2018-10-24 14:05 | POSTANESTH ---
Post Anesthetic Evaluation Cardiovascular Status: Normal, Stable Respiratory Status: Normal, Stable Level of Consciousness/Mental Status: Can Participate in Eval Pain Control: Adequate, Prn Tx Ordered Nausea/Vomiting Control: Adequate, Prn Tx Ordered Complications Possibly Related to Anesthesia: None Noted
[2018-10-24 15:02] VITALS: BP 138/75
== END 2018-10-24 15:02 | disposition home or self-care (01) ==
LOC: FIMAGING 09:44
PROVIDERS: ATTEND Radiology Diagnostic Radiology
PROC: BW241ZZ Computerized Tomography (CT Scan) of Chest and Abdomen using Low Osmolar Contrast (ICD-10-PCS; principal; 2018-10-24 13:30)
PROC: 3E0T3BZ Introduction of Anesthetic Agent into Peripheral Nerves and Plexi, Percutaneous Approach (ICD-10-PCS; principal; 2018-10-24 13:30)
DX: C25.9 Malignant neoplasm of pancreas, unspecified (principal); G89.3 Neoplasm related pain (acute) (chronic); C79.9 Secondary malignant neoplasm of unspecified site; I25.10 Atherosclerotic heart disease of native coronary artery without angina pectoris; E03.9 Hypothyroidism, unspecified; Z95.5 Presence of coronary angioplasty implant and graft; Z87.440 Personal history of urinary (tract) infections; Z96.649 Presence of unspecified artificial hip joint; Z96.651 Presence of right artificial knee joint
CPT/HCPCS: J2250; J2370; J2405; J2704; J3010; Q9967